=== PATIENT | male | born 1935 | race Caucasian/White ===

== ENCOUNTER 2019-05-03 08:14 | Outpatient (CLI) | payer MEDICARE, SELFPAY ==
[2019-05-03 09:13] LABS: Prostate Specific Antigen 15.24 ng/mL (0-4)
== END 2019-05-03 08:15 | disposition home or self-care (01) ==
PROVIDERS: Family Provider Electrodiagnostic Medicine; PCP Electrodiagnostic Medicine; Visit Provider Urology
DX: R97.20 Elevated prostate specific antigen [PSA] (principal)
CPT/HCPCS: 81001; 84153

== ENCOUNTER 2019-05-23 05:41 | Emergency (ER) | payer MEDICARE, MEDICAID, SELFPAY ==
[2019-05-23] VITALS (11 sets, daily range): BP systolic 136–157; BP diastolic 68–83; PULSE 58–63; RESP 16–20; TEMP 36.4; O2SAT 92–98; BMI 22.7
--- NOTE | 2019-05-23 05:46 | ED_ITS ---
HPI - General Adult General: Chief complaint: Urogenital-Male Stated complaint: urinary pain, hypertension Time Seen by Provider: 05/23/19 05:58 History of Present Illness: HPI narrative: 83-year-old male comes in complaining difficulty urination has had some hematuria self cath once with moderate return he was able to urinate a little bit when he first got here today but is not able to completely empty his bladder. He has been taking ciprofloxacin that is per primary care gave him. This is been an ongoing problem and has been worsening recently. MD complaint: Urinary retention Onset (ago): day(s) (4-5) Severity: moderate Relieving factors: other (Self cath) Associated symptoms: Reports no associated symptoms; Deny chest pain, dyspnea, malaise, nausea, rash or vomiting Review of Systems Const: Denies: fever, chills, body aches, change in appetite, fatigue or malaise ENMT: Denies: throat pain, ear pain, nasal discharge or nasal congestion Card: Denies: chest pain, edema, shortness of breath on exertion or shortness of breath when lying down Resp: Denies: shortness of breath, productive cough or non-productive cough GI: Denies: abdominal pain, nausea, vomiting, vomiting blood, coffee grounds in vomit, diarrhea, constipation, bloating, blood in stool or black tarry stool : Reports: difficulty urinating, urinary frequency, urinary hesitancy, difficulty starting urination and decreased urine ouput; Denies: flank pain, painful urination or urinary urgency Skin/Breast: Denies: rash or itching PFSH ED PFSH: Statuses (acute, chronic, etc) shown below reflect problem list status as previously entered and may not be historically accurate Medical History Abnormal prostate exam (Acute) ASHD (arteriosclerotic heart disease) (Acute) Benign prostatic hyperplasia with lower urinary tract symptoms (Acute) CAD (coronary artery disease) (Acute) CKD (chronic kidney disease) (Acute) Diabetes (Acute) Dyslipidemia (Acute) Elevated prostate specific antigen [PSA] (Acute) Essential hypertension (Acute) Ischemic cardiomyopathy (Acute) Myocardial infarction (Acute) S/P extracorporeal shock wave therapy (Acute) Surgical History History of heart artery stent (Acute) S/P angioplasty with stent (Acute) S/P cystoscopy (Acute) Family History Mother , 57 Cancer LEUKEMIA Father , 90 CAD (coronary artery disease) CHF (congestive heart failure) Brother Myocardial infarction CAD (coronary artery disease) Social History Smoking and tobacco status: never smoked Alcohol intake: never Marital status: Current occupational status: retired Current gender identity: Male Physical Exam Const: COMMON NORMALS: no apparent distress GENERAL APPEARANCE: cooperative and comfortable ORIENTATION/CONSCIOUSNESS: Yes awake, Yes oriented to person, Yes oriented to place and Yes oriented to time HENMT: COMMON NORMALS: normocephalic, head/scalp atraumatic, hearing grossly normal bilaterally, external ears normal, EAC's normal, TM's normal bilaterally, nasal mucous membranes and turbinates normal, moist oral mucous membranes and oropharynx normal HEAD & SCALP: normocephalic and atraumatic NOSE: nasal mucous membranes and turbinates normal EXTERNAL EAR: Yes external ears normal EXTERNAL AUDITORY CANAL: EAC's normal TYMPANIC MEMBRANE: TM's normal bilaterally Eye: COMMON NORMALS: PERRL, EOMs intact bilaterally, conjunctivae normal and no scleral icterus CONJUNCTIVA: Yes conjunctivae normal PUPIL: Yes PERRL Neck/C-Spine: COMMON NORMALS: full ROM, no lymphadenopathy, supple and no JVD Lymph: LYMPHATIC: no lymphadenopathy noted and no lymphedema noted Resp: COMMON NORMALS: normal respiratory effort, no retractions, no use of accessory muscles and clear to auscultation bilaterally AUSCULTATION: clear to auscultation bilaterally Cardio: COMMON NORMALS: no JVD, regular rate, regular rhythm and no murmurs RATE: regular rate RHYTHM: regular rhythm GI: COMMON NORMALS: soft to palpation and no hepatosplenomegaly AUSCULTATION: Yes normoactive bowel sounds PALPATION: Yes soft, No tender, No guarding and Yes no hepatosplenomegaly Extremity: COMMON NORMALS: normal to inspection, normal capillary refill, no clubbing, cyanosis or edema, no calf tenderness and no pedal edema Neuro: SENSORIUM/ORIENTATION: Yes oriented to person, Yes oriented to place and Yes oriented to time Skin: COMMON NORMALS: no rashes or lesions noted GENERAL SKIN EXAM: no rashes or lesions noted Course ED course: 450 out with placement of the cath. We will leave the leg bag and have him increase his tamsulosin and see Dr. Smith in the next 5 to 7 days Discharge Plan Discharge Patient Disposition: Home, Self-Care Clinical Impression: Benign prostatic hyperplasia with urinary retention Condition: Stable Prescriptions: No Action aspirin [Enteric Coated Aspirin] 81 mg tablet,delayed release (DR/EC) 81 mg PO DAILY RF: 0 clopidogrel 75 mg tablet 75 mg PO DAILY RF: 0 metoprolol tartrate 50 mg tablet 50 mg PO BID RF: 0 albuterol sulfate [ProAir HFA] 90 mcg/actuation HFA aerosol inhaler 2 puff INHALATION Q6H PRNRF: 0 lisinopril 40 mg tablet 40 mg PO DAILY RF: 0 simvastatin 40 mg tablet 40 mg PO DAILY RF: 0 sodium chloride [Saline Mist] 0.65 % aerosol,spray 1 spray INTRANASAL .prn RF: 0 tamsulosin 0.4 mg capsule 0.4 mg PO DAILY RF: 0 Discharge Orders: Discharge Order (Routine); Ordered 05/23/19 Ordered By: Cornelius Ledezma Referrals: Jose Smith DO [Primary Care Provider] - Discharge Diet: Usual diet Discharge Activity: Resume usual activity Activity Restrictions/Additional Instructions: Increase tamsulosin 1 to 2 tablets daily until you see your primary care doctor again. See Dr. Smith in approximately 5 to 7 days Coding Level of Care Code ED Varnish Melter Helper for Joan Rose
[2019-05-23 06:18] LABS: Basophils % 0.5 %; Eosinophils # 0.2 10^3/uL (0.0-0.8); Eosinophils % 3.3 %; Hematocrit 40.4 % (42.0-52.0); Lymphocytes # 1.1 10^3/uL (0.8-4.8); Mean Corpuscular HGB Conc 32.2 g/dL (30.0-36.0); Mean Corpuscular Hemoglobin 28.8 pg (28.0-34.0); Mean Corpuscular Volume 89.4 fL (80-94); Mean Platelet Volume 11.9 fL (7.4-10.4); Monocytes # 0.7 10^3/uL (0.2-0.9); Monocytes % 11.8 %; Neutrophils # 3.7 10^3/uL (1.8-7.7); Neutrophils % 65.2 %; Nucleated Red Blood Cells % 0 %; Platelet Count 164 10^3/cmm (130-400); Red Blood Count 4.52 10^6/uL (4.1-5.3); Red Cell Distribution Width 11.9 % (12.1-15.1); White Blood Count 5.7 10^3/uL (4.0-10.0)
[2019-05-23 06:23] LABS: Add Urine Microscopic? YES; Bilirubin Urine Neg (NEGATIVE); Blood Urine 3+ (Negative); Glucose Urine UA Norm (Normal); Ketones Urine Negative (Negative); Leukocyte Esterase Urine Negative (Negative); Nitrate Urine Negative (Negative); Protein Urine Neg (Negative); Specific Gravity, Urine 1.005 (1.005-1.030); Urine Appearance Hazy (CLEAR); Urine Color Yellow (Yellow); Urobilinogen Urine Norm (Negative); pH Urine 6.5 (5-7)
[2019-05-23 06:26] LABS: Add Urine Culture? Yes; Bacteria Urine TRACE; RBC Urine 80-100 /hpf (0-2); Squamous Epithelial Cell Urine 0-4 (0-5)
[2019-05-23 06:28] LABS: Anion Gap 12.8 (5-19); Blood Urea Nitrogen 17 mg/dL (8-23); Calcium 9.4 mg/dL (8.5-10.5); Carbon Dioxide 27 mmol/L (22-29); Chloride 102 mmol/L (98-107); Glucose 102 mg/dL (74-106); Osmolality Calculated 283 mOsm/kg (285-295); Potassium 3.8 mmol/L (3.5-5.1); Sodium 138 mmol/L (136-145)
== END 2019-05-23 07:29 | disposition home or self-care (01) ==
PROVIDERS: Emergency Provider Family Medicine; Family Provider Electrodiagnostic Medicine; PCP Electrodiagnostic Medicine
DX: N40.1 Benign prostatic hyperplasia with lower urinary tract symptoms (principal); R33.8 Other retention of urine; Z79.02 Long term (current) use of antithrombotics/antiplatelets; Z79.82 Long term (current) use of aspirin; I25.10 Atherosclerotic heart disease of native coronary artery without angina pectoris; E11.9 Type 2 diabetes mellitus without complications; E78.5 Hyperlipidemia, unspecified; I10 Essential (primary) hypertension; I25.2 Old myocardial infarction
CPT/HCPCS: 36415; 51702; 80048; 81001; 85025; 87086; 99282; 99283

== ENCOUNTER 2019-06-07 12:08 | Day surgery (SDC) | payer MEDICARE, MEDICAID, SELFPAY ==
[2019-06-06 09:08] VITALS: BMI 21.9
--- NOTE | 2019-06-06 09:43 | ANES.PREANE2 ---
Pre-Anesthetic Assessment Pre-Anesthetic Assessment: Height/Weight: Height 1.68 m Weight 61.689 kg Preop Diagnosis: Multiple bladder stones Proposed Procedure: Operation Date: 06/07/19 14:05 Proposed Procedures p Cystolitholapaxy 00824/63938/ N21.0 N40.1 R33.8(Not Applicable) - Gabo Nielson MD s Poss Transurethral Resection Of Prostate(Not Applicable) - Gabo Nielson MD Exam: Pre-Anes Outpt Exam: alert, oriented x 3, clear to auscultation bilaterally and regular rate & rhythm Airway: Submandibular: WNL Cervical ROM: WNL MP: 1 Dentition: False CV/HEM: CV/HEM: CAD, CHF and VT Comments: VT x 2, , stents without angina/NTG post stents in last visit 1 month no changes/concerns : Comments: BPH with retention, indwelling cather, stones Metabolic: Metabolic: DM Comments: off meds 2 months, rx'd 10y Anesthetic Plan: ASA status: 3 Anesthesia: General PFSH Anesthesia PFSH: Social History Smoking and tobacco status: never smoked Alcohol intake: never Marital status: Current occupational status: retired History of recent travel: No Current gender identity: Male Data Anesthesia Cardiac Studies: No Data to Display
[2019-06-07 12:30] VITALS: BP 167/80; PULSE 63; RESP 16; TEMP 36.8; O2SAT 98
[2019-06-07] MEDS: sodium chloride 0.9% 1,000 ML 30 ML IV (12:42)
--- NOTE | 2019-06-07 12:46 | ECG_ITS ---
Measurements Intervals [place] Rate: 60 P: 53 AR: 134 QRS: 15 QRSD: 125 T: 86 QT: 423 QTc: 425 SINUS RHYTHM MODERATE INTRAVENTRICULAR CONDUCTION DELAY [110+ ms QRS DURATION] NONSPECIFIC T-WAVE ABNORMALITY Compared to ECG 04/11/2016 05:26:52 Intraventricular conduction delay now present Sinus arrhythmia no longer present Possible ischemia no longer present T-wave abnormality still present Electronically Signed On 06-07-2019 20:41:22 LINEMARKER by Ting Arteaga M.D. [email or web address]
--- NOTE | 2019-06-07 12:53 | P.ANESUD_ITS ---
Pre-Anesthetic Update Pre-Anesthetic Assessment: Date of Surgery/Procedure: 06/07/19 Preop Crystal gnosis: Multiple bladder stones Proposed Procedure: Operation Date: 06/07/19 13:45 Proposed Procedures p Cystolitholapaxy 29911/14875/ N21.0 N40.1 R33.8(Not Applicable) - Gabo Nielson MD s Poss Transurethral Resection Of Prostate(Not Applicable) - Gabo Nielson MD Last Intake: Intake Last Liquid Date 06/07/19 Last Liquid Time 07:00 Last Solid Date 06/06/19 Last Solid Time 20:00 Vitals: Temperature 98.2 F 06/07/19 12:30 Temperature Source Temporal Artery S can 06/07/19 12:30 Pulse Rate 63 06/07/19 12:30 Respiratory Rate 16 06/07/19 12:30 Blood Pressure 167/80 06/07/19 12:30 Blood Pressure Marguerite n 109 06/07/19 12:30 Pulse Oximetry 98 06/07/19 12:30 Oxygen Delivery Me thod 06/07/19 12:37 Cardiac Studies: No Data to Display
--- NOTE | 2019-06-07 13:13 | PM.HPUD ---
H&P update H&P Update: DATE OF SURGERY/PROCEDURE: 06/07/19 DATE H&P PERFORMED: 06/01/19 H&P UPDATE INFORMATION: No changes to prior documentation PREOP DIAGNOSIS: Multiple bladder stones PRIMARY INDICATION FOR PROCEDURE: symptomatic bladder stones PLANNED PROCEDURE: Operation Date: 06/07/19 13:45 Proposed Procedures p Cystolitholapaxy 05623/13353/ N21.0 N40.1 R33.8(Not Applicable) - Gabo iNelson MD s Poss Transurethral Resection Of Prostate(Not Applicable) - Gabo Nielson MD Full H&P Medications/Allergies: Current Medications: Current Medications Generic Name Dose Route Start Last Admin Trade Name Freq PRN Reason Stop Dose Admin Sodium Chloride 1,000 mls @ 30 ml s/hr 06/07/19 12:30 06/07/19 12:42 Sodium Chloride 0.9% IV 06/08/19 12:29 30 mls/hr .Q24H ABA Administration Perinent History: Medical/Surgical History: Medical History (Updated 06/01/19 @ 16:05 by Gabo Nielson MD) Abnormal prostate exam ASHD (arteriosclerotic heart disease) Benign prostatic hyperplasia with urinary retention Bladder stone CAD (coronary artery disease) CKD (chronic kidney disease) Diabetes Dyslipidemia Elevated prostate specific antigen [PSA] Essential hypertension Ischemic cardiomyopathy Myocardial infarction S/P extracorporeal shock wave therapy Family History: Family History (Updated 05/17/19 @ 10:28 by Jojo Munoz RN) Mother , 57 Cancer LEUKEMIA Father , 90 CAD (coronary artery disease) CHF (congestive heart failure) Brother Myocardial infarction CAD (coronary artery disease) Social History: Social History Smoking and tobacco status: never smoked Alcohol intake: never Marital status: Current occupational status: retired History of recent travel: No Current gender identity: Male
--- NOTE | 2019-06-07 15:33 | PM.OP ---
Operative Report Date of procedure: June 07, 2019 Pre-op Diagnosis: Multiple bladder stones Post-op diagnosis: same Procedure Done: Cystolitholapaxy >2.5 cm Pathology: Stone fragments Surgeon: Naga Anesthesia: General Estimated blood loss: <25 cc Urine output: Not measured Complications: None Findings: For stones completely fragmented and evacuated from the bladder with an Ellik evacuator Condition: stable Disposition: PACU Brief History: ANGELA is a very pleasant 83-year-old white male with longstanding history of BPH/obstruction recently discovered to have multiple bladder stones. Reviewed TURP and cystolitholapaxy versus cystolitholapaxy along with continued medical therapy. He chose the latter. Admitted now for that procedure. Procedure: After routine preoperative evaluation examination and obtaining of informed consent he was taken to the operating suite on 06/07/2019 where general anesthesia was administered without difficulty after appropriate timeout was performed, SCDs confirmed to be functioning, preoperative antibiotics administered, and beta-thanh protocol confirmed. Prepped and draped in the usual sterile fashion in dorsolithotomy position pain careful attention to avoiding pressure points. 21 [place] cystoscope with 30 degree lens was introduced into the urethral meatus and advanced into the bladder videoscopy. 30 and 70 degree lenses were utilized to identify the stones. And severe trabeculation throughout the bladder. No other gross abnormalities identified beyond the stones and a very enlarged intravesically protruding prostate. A 910 holmium laser fiber was utilized for fragmentation. The stones were individually and sequentially fragmented until the fragments were small enough that could be easily evacuated with any like evacuator. Final inspection with a 30 and 70 degree lens confirmed this. There is no severe bleeding. There was some mild oozing at the bladder neck/prostatic intravesical protrusion portion. Bladder was drained with a 20 [place] silicone catheter and showed clear to light pink efflux. He tolerated the procedure well without complications and was awakened in the operating room and returned to recovery in stable condition. PLANS: 1. Follow-up early next week for voiding trial. 2. Continue holding Plavix and aspirin until then.
[2019-06-07 15:36] VITALS: BP 137/72; PULSE 65; RESP 20; TEMP 36.6; O2SAT 96
[2019-06-07 15:40] VITALS: BP 143/74; PULSE 64; RESP 13; O2SAT 95
[2019-06-07 15:45] VITALS: BP 143/77; PULSE 62; RESP 17; TEMP 36.4; O2SAT 95
[2019-06-07 15:58] VITALS: BP 145/87; PULSE 69; RESP 18; TEMP 36.7; O2SAT 94
[2019-06-07 16:21] VITALS: BP 167/88; PULSE 66; RESP 16; TEMP 36.6; O2SAT 96
--- NOTE | 2019-06-07 16:52 | PC.NURSE ---
1645 flushed catheter with 50 ml of normal saline. flushed easily no clots seen.
== END 2019-06-07 16:54 | disposition home or self-care (01) ==
PROVIDERS: Family Provider Electrodiagnostic Medicine; PCP Electrodiagnostic Medicine; Visit Provider Urology
PROC: 0TCB8ZZ Extirpation of Matter from Bladder, Via Natural or Artificial Opening Endoscopic (ICD-10-PCS; CPT 52318; principal; 2019-06-07 13:45)
PROC: (CPT 52318; 2019-06-07 13:45)
DX: N21.0 Calculus in bladder (principal); N40.1 Benign prostatic hyperplasia with lower urinary tract symptoms; R33.8 Other retention of urine; I25.10 Atherosclerotic heart disease of native coronary artery without angina pectoris; E78.5 Hyperlipidemia, unspecified; E11.22 Type 2 diabetes mellitus with diabetic chronic kidney disease; I13.0 Hypertensive heart and chronic kidney disease with heart failure and stage 1 through stage 4 chronic kidney disease, or unspecified chronic kidney disease; I50.9 Heart failure, unspecified; N18.9 Chronic kidney disease, unspecified; I25.2 Old myocardial infarction; Z82.49 Family history of ischemic heart disease and other diseases of the circulatory system; Z95.5 Presence of coronary angioplasty implant and graft; Z79.82 Long term (current) use of aspirin
CPT/HCPCS: 52318; 12345; 82365; 88300; 93005; J2001; J2704; J3010; J3490; J7030

== ENCOUNTER 2019-06-13 15:53 | Inpatient (IN) | payer MEDICARE, MEDICAID, SELFPAY ==
[2019-06-13 16:10] VITALS: BMI 21.7
[2019-06-13 16:56] VITALS: BP 141/74; PULSE 69; RESP 16; TEMP 37.1; O2SAT 97
--- NOTE | 2019-06-13 16:56 | P.HP_ITS ---
Providers/Chief Complaint Admitting Physician: Gabo Nielson MD Primary Care Provider: Jose Smith DO Chief Complaint: Gross Hematuria with clots History of Present Illness Arianna Sutherland is a 83 year old male well-known to me for history of chronic BPH with obstruction, cystolithiasis, elevated PSA, and abnormal CHRIST who on 06/07/2019 underwent cystolitholapaxy of multiple stones in the bladder. The procedure was uneventful. Because of his large prostate a catheter was left in place and he was discharged from outpatient surgery. While he had some blood in his urine immediately postop it cleared quickly and he presented to clinic today for voiding trial. He chronically takes aspirin and Plavix and these have been held an appropriate amount of time before surgery. He restarted them on 06/11/2019. He successfully passed his voiding trial today. He was trained in [facility] and did very well. About 2 hours later he presented back to the clinic complaining of bloody discharge from his penis, feeling of retention, and increasing discomfort. Bladder scan showed approximately 400 cc in his bladder and cystoscopy was performed showing a large amount of clot in the bladder. Cystoscopy, bladder irrigation of clots was conducted mostly through the cystoscope with some through a large bore catheter. Eventually the clots were cleared and he was started on continuous bladder irrigation in the clinic. The urine cleared significantly but not completely and for that reason he is being admitted for further evaluation and treatment while requiring CBI. I have consulted the hospitalist service for assistance with medical management. His aspirin and Plavix have been stopped. Hopefully the continuous bladder irrigation will be enough to avoid surgical intervention for fulguration. Risks associated with that are significant while still under the impact of aspirin and Plavix. Review of Systems Const: Reports: fatigue; Denies: fever or chills Eyes: Denies: change in vision ENMT: Denies: disequilibrium Card: Denies: chest pain or palpitations Resp: Denies: shortness of breath or productive cough GI: Reports: abdominal pain (Secondary to distended bladder) : Reports: difficulty urinating, painful urination and blood in urine (Gross hematuria with clots) Musc: Denies: extremity pain or extremity swelling Skin/Breast: Denies: rash or redness Neuro: Denies: headache or weakness in extremities Psych: Reports: anxiety; Denies: memory loss Medications/Allergies Allergies Allergy/AdvReac Type Severity Reaction Status Date / Time Latex, Natural Rubber Allergy ALBA-Antwone Verified 06/13/19 08:57 r PFSH Acute PFSH: Medical History (Updated 06/13/19 @ 09:32 by Gabo Nielson MD) Abnormal prostate exam ASHD (arteriosclerotic heart disease) Benign prostatic hyperplasia with urinary retention Bladder stone CAD (coronary artery disease) CKD (chronic kidney disease) Diabetes Dyslipidemia Elevated prostate specific antigen [PSA] Essential hypertension Ischemic cardiomyopathy Myocardial infarction S/P extracorporeal shock wave therapy Surgical History (Updated 06/13/19 @ 17:08 by Gabo Nielson MD) History of bladder stone Cystolitholapaxy May 2019 History of heart artery stent S/P angioplasty with stent S/P cystoscopy Social History Smoking and tobacco status: never smoked Alcohol intake: never Marital status: Current occupational status: retired History of recent travel: No Current gender identity: Male Vitals/I&O/Wt Weight last 48 hrs Weight 134 lb 11.2 oz Physical Exam Const: COMMON NORMALS: no apparent distress, alert and well nourished GENERAL APPEARANCE: well kempt and well developed ORIENTATION/CONSCIOUSNESS: not confused HENMT: COMMON NORMALS: normocephalic and head/scalp atraumatic HEAD & SCALP: normocephalic and atraumatic Eye: COMMON NORMALS: conjunctivae normal and no scleral icterus CONJUNCTIVA: Yes conjunctivae normal Neck/C-Spine: COMMON NORMALS: full ROM GENERAL: Yes normal visual inspection Lymph: LYMPHATIC: no lymphadenopathy noted and no lymphedema noted Resp: COMMON NORMALS: normal respiratory effort EFFORT & INSPECTION: No labored and No actively coughing AUSCULTATION: clear to auscultation bilaterally Cardio: COMMON NORMALS: regular rate and regular rhythm RATE: regular rate RHYTHM: regular rhythm BRUITS: no carotid bruits : BLADDER/KIDNEY EXAM: Yes bladder abnormal to palpation (Tender and distended) PENIS: normal penis MEATUS: meatus normal and blood at meatus SCROTUM: Yes testes descended bilaterally and No tenderness TESTES: No testicular mass Extremity: COMMON NORMALS: no clubbing, cyanosis or edema Neuro: COMMON NORMALS: no focal motor deficits SENSORIUM/ORIENTATION: Yes alert Psych: COMMON NORMALS: mental status grossly normal APPEARANCE: Yes grossly normal and Yes well kempt ATTITUDE: Yes calm and Yes engaged THOUGHT PROCESS: normal thought process Skin: COMMON NORMALS: no rashes or lesions noted and no jaundice GENERAL SKIN EXAM: no rashes or lesions noted Attestations Medical Necessity Statement*: On continuous bladder irrigation for active bleeding Coding Level of Care Code Acute Entry Level Financial Analyst for Joan Rose
--- NOTE | 2019-06-13 17:38 | P.CONIM_ITS ---
Providers/Reason For Consult Consulting Physican/Specialty*: Estee Armstrong/hospital medicine Reason for Consult*: Antiplatelet medications with history of CAD Requesting Physcian: Dr Nielson, urology Attending Physician: Gabo Nielson MD Primary Care Provider: Jose Smith DO History of Present Illness History of Present Illness Arianna Sutherland is a 83 year old male with past medical history of CAD, status post stenting of coronary arteries in 2017, HTN, HLD, BPH, urinary retention, urolithiasis was admitted directly from urology clinic after cystoscopy and irrigation, removal of multiple blood clots due to faraz hematuria and resulting urinary obstruction, and initiation of CBI. He had recently undergone cystolitholapaxy on 06/07/2019, prior to which aspirin Plavix were held. His urinary catheter remained in place. He states he resumed his aspirin Plavix about 3 days ago. Catheter was removed today, and he was trained in self- catheterization. He returned due to bloody discharge and retention. Due to persistent faraz hematuria, he is admitted for CBI and additional management. We are consulted for assistance with management of his antiplatelet agents. He states he is currently doing better. Denies pain, although is having some discomfort in his lower abdomen. His family are accompanying him. He states that he has not had any stents more recent than 2017, and denies any history of CVA. He usually follows with Dr. Boyle in office. Review of Systems Const: Denies: fever, chills, body aches or malaise Eyes: Denies: change in vision or eye redness ENMT: Reports: hoarseness; Denies: throat pain, oral sores/lesions or ear pain Card: Denies: chest pain, edema, pre-syncope or shortness of breath on exerti on Resp: Denies: shortness of breath, productive cough, change in phlegm color or coughing up blood GI: Denies: abdominal pain, nausea, vomiting, diarrhea, constipation, blood in stool or black tarry stool : Reports: difficulty urinating and blood in urine; Denies: flank pain or urinary frequency Musc: Denies: back pain, joint swelling or redness Skin/Breast: Denies: rash, sores or new lesion Neuro: Denies: headache, numbness in extremities, weakness in extremities, dizziness, confusion or seizure-like activity Endo: Denies: excessive urination or excessive thirst Pete/Lymph: Denies: easy bleeding or purpura All/Imm: Denies: hives, throat swelling or tongue swelling Meds/Allergies Home Medications and Allergies Home Medications Medication Instructions Recorded Confirmed Type aspirin 81 mg tablet,delayed 81 mg PO DAILY tab 05/03/19 06/13/19 History release clopidogrel 75 mg tablet 75 mg PO DAILY tab 05/03/19 06/13/19 History lisinopril 40 mg tablet 40 mg PO DAILY tab 05/03/19 06/13/19 History metoprolol tartrate 50 mg tablet 50 mg PO BID 05/03/19 06/13/19 History simvastatin 40 mg tablet 40 mg PO DAILY tab 05/03/19 06/13/19 History sodium chloride 0.65 % nasal spray 1 spray INTRANASAL .prn ml 05/03/19 06/07/19 History aerosol albuterol sulfate 90 mcg/actuation 1 inh INHALATION .prn gm 06/13/19 06/13/19 History aerosol inhaler diphenhydramine HCl 1 % topical % TOPICAL .prn 06/13/19 06/13/19 History cream sodium chloride 0.9 % nasal spray 1 spray INTRANASAL BID PRN 06/13/19 06/13/19 History aerosol Allergies Allergy/AdvReac Type Severity Reaction Status Date / Time Latex, Natural Rubber Allergy Ana Rosa Verified 06/13/19 08:57 r PFSH Acute PFSH: Medical History Abnormal prostate exam ASHD (arteriosclerotic heart disease) Benign prostatic hyperplasia with urinary retention Bladder stone CAD (coronary artery disease) CKD (chronic kidney disease) Diabetes Dyslipidemia Elevated prostate specific antigen [PSA] Essential hypertension Ischemic cardiomyopathy Myocardial infarction S/P extracorporeal shock wave therapy Surgical History History of bladder stone Cystolitholapaxy May 2019 History of heart artery stent S/P angioplasty with stent S/P cystoscopy Family History (Updated 06/13/19 @ 17:49 by Charles Armstrong MD) Mother , 57 Cancer LEUKEMIA Father , 90 CAD (coronary artery disease) CHF (congestive heart failure) Brother Myocardial infarction CAD (coronary artery disease) Leukemia Social History Smoking and tobacco status: never smoked Alcohol intake: never Marital status: Current occupational status: retired History of recent travel: No Current gender identity: Male Vitals/I&O/Wt Last Vital Signs Temp 98.8 F 06/13/19 16:56 Pulse 69 06/13/19 16:56 Resp 16 06/13/19 16:56 BP 141/74 06/13/19 16:56 Pulse Ox 97 06/13/19 16:56 Weight last 48 hrs Weight 61.099 kg Physical Exam Const: COMMON NORMALS: no apparent distress and oriented x3 HENMT: COMMON NORMALS: oropharynx normal Neck/C-Spine: COMMON NORMALS: no JVD Resp: COMMON NORMALS: normal respiratory effort and clear to auscultation bilaterally AUSCULTATION: clear to auscultation bilaterally Cardio: COMMON NORMALS: no JVD, regular rhythm, S1 normal heart sound, S2 normal heart sound and no murmurs RHYTHM: regular rhythm HEART SOUNDS: S1 normal and S2 normal GI: COMMON NORMALS: normal to inspection, nondistended, normoactive bowel sounds, soft to palpation and non-tender PALPATION: Yes soft : OTHER: Gupta in place. Bloody urine in the bag. Extremity: COMMON NORMALS: no joint enlargement and no pedal edema Neuro: COMMON NORMALS: oriented x3 and moves all extremities Skin: COMMON NORMALS: no rashes or lesions noted GENERAL SKIN EXAM: no rashes or lesions noted A&P Assessment and plan (1) Faraz hematuria: Will check Hb level this evening. Will request for 2 units pRBC on hold. Continue CBI. Per discussion with urology due to faraz persistent hematuria at this time hold both aspirin and Plavix. As soon as it is safe would resume aspirin. He is longer than 1 year out from his stent, and so Plavix should be safe to hold at this time. For now would hold off on platelet transfusion unless he is requiring blood or urgent surgical procedure. CLD. At this time blood pressure is 141/74. Heart rate 69. He is doing well and denies any orthostatic symptoms. SCDs for DVT to prophylaxis. Status: Acute Code(s): R31.0 - Gross hematuria Additional A&P Information CAD: Aspirin Plavix has been held due to parenchyma drip. Resume aspirin when possible. Continue statin, beta-thanh. CKD (chronic kidney disease) Dyslipidemia Essential hypertension Ischemic cardiomyopathy Consult Attestations Medical Necessity Statement: Admission of over 2 midnights is going to be needed for assessment of management of faraz hematuria despite outpatient management while on antiplatelet agents. Coding Level of Care Code Acute Ruby On Rails Engineer for [facility] [place] Diagnoses Faraz hematuria R31.0
[2019-06-13 17:40] VITALS: O2SAT 96
[2019-06-13 18:01] LABS: Basophils % 0.3 %; Eosinophils % 0.3 %; Hemoglobin 11.2 g/dL (11.7-16.6); Lymphocytes # 0.7 10^3/uL (0.8-4.8); Lymphocytes % 7.8 %; Mean Corpuscular Hemoglobin 28.4 pg (28.0-34.0); Mean Corpuscular Volume 88.6 fL (80-94); Mean Platelet Volume 11.9 fL (7.4-10.4); Monocytes # 0.6 10^3/uL (0.2-0.9); Monocytes % 6.5 %; Neutrophils # 7.9 10^3/uL (1.8-7.7); Neutrophils % 84.8 %; Nucleated Red Blood Cells % 0 %; Platelet Count 211 10^3/cmm (130-400); Red Blood Count 3.95 10^6/uL (4.1-5.3); Red Cell Distribution Width 11.4 % (12.1-15.1); White Blood Count 9.3 10^3/uL (4.0-10.0)
[2019-06-13 18:03] LABS: Anion Gap 14.9 (5-19); Blood Urea Nitrogen 23 mg/dL (8-23); Calcium 9.3 mg/dL (8.5-10.5); Carbon Dioxide 25 mmol/L (22-29); Chloride 100 mmol/L (98-107); Glucose 136 mg/dL (65-115); Osmolality Calculated 281 mOsm/kg (285-295); Potassium 3.9 mmol/L (3.5-5.1); Sodium 136 mmol/L (136-145)
[2019-06-13] MEDS: tamsulosin 0.4 mg Capsule PO (19:08)
[2019-06-13] MEDS: metoprolol tartrate 50 mg Tablet PO (19:08)
[2019-06-13] MEDS: docusate sodium 100 mg Capsule PO (19:08)
--- NOTE | 2019-06-13 19:35 | PM.MISC ---
Miscellaneous Note Purpose of Documentation: Update Note: After arriving to the floor his catheter became occluded again requiring manual irrigation x2. Clots were retrieved CBI reinitiated and his urine has remained much more clear but still requiring a fairly brisk CBI rate. Appreciate Dr. Armstrong's assistance with medical management and advice regarding management of aspirin and Plavix in this difficult situation. We will add FINASTERIDE 5 mg daily to see if that will help with reducing PROSTATIC source of bleeding. Reviewed and consider the above information for this visit the days' events findings and plans with the patient and family.
--- NOTE | 2019-06-13 19:38 | PC.NURSE ---
CBI CBI fluids running wide open. Output slightly red with occasional dark red streaks. 2400 CBI fluid instilled, 3100 output. Several clots removed via manual irrigation. Pt tolerated manual irrigation well. Report given to JOHN Briscoe.
[2019-06-13 20:00] VITALS: BP 124/64; PULSE 59; RESP 20; TEMP 37; O2SAT 94
[2019-06-13] MEDS: atorvastatin 40 mg Tablet 20 MG PO (20:29)
[2019-06-13] MEDS: finasteride 5 mg Tablet PO (20:30)
[2019-06-13] MEDS: sodium chloride 0.45% 1,000 ML 50 ML IV (22:03)
[2019-06-14] VITALS (9 sets, daily range): BP systolic 107–132; BP diastolic 43–65; PULSE 57–78; RESP 16–20; TEMP 36.7–37.3; O2SAT 94–96
[2019-06-14 00:24] LABS: Hemoglobin 10.1 g/dL (11.7-16.6)
[2019-06-14 04:10] LABS: Basophils % 0.6 %; Eosinophils # 0.2 10^3/uL (0.0-0.8); Eosinophils % 2.4 %; Hematocrit 31.5 % (42.0-52.0); Hemoglobin 10.2 g/dL (11.7-16.6); Lymphocytes # 1.1 10^3/uL (0.8-4.8); Lymphocytes % 15.2 %; Mean Corpuscular HGB Conc 32.4 g/dL (30.0-36.0); Mean Corpuscular Hemoglobin 29.6 pg (28.0-34.0); Mean Corpuscular Volume 91.3 fL (80-94); Mean Platelet Volume 12.3 fL (7.4-10.4); Monocytes # 0.9 10^3/uL (0.2-0.9); Neutrophils # 4.8 10^3/uL (1.8-7.7); Neutrophils % 68.7 %; Nucleated Red Blood Cells % 0 %; Platelet Count 191 10^3/cmm (130-400); Red Blood Count 3.45 10^6/uL (4.1-5.3); Red Cell Distribution Width 11.7 % (12.1-15.1)
[2019-06-14 04:43] LABS: Anion Gap 12.9 (5-19); Blood Urea Nitrogen 14 mg/dL (8-23); Calcium 8.8 mg/dL (8.5-10.5); Carbon Dioxide 27 mmol/L (22-29); Chloride 105 mmol/L (98-107); Glucose 103 mg/dL (65-115); Osmolality Calculated 288 mOsm/kg (285-295); Potassium 3.9 mmol/L (3.5-5.1); Sodium 141 mmol/L (136-145)
--- NOTE | 2019-06-14 05:37 | PC.NURSE ---
SHIFT SUMMARY Pt is here d/t clot retention. CBI is running at a high rate. I was able to slow it a little. Urine in vides bag is pink in color. Pt has denied any pain or discomfort through the night. Daughter stayed overnight with patient. Patient has went through 11 bags and while most likely go through one more before day shift arrives. Output as of now is 3800 of urine.
[2019-06-14] MEDS: docusate sodium 100 mg Capsule PO ×2 (08:20→17:19)
[2019-06-14] MEDS: tamsulosin 0.4 mg Capsule PO ×2 (08:20→17:19)
[2019-06-14] MEDS: metoprolol tartrate 50 mg Tablet PO ×2 (08:21→21:00)
--- NOTE | 2019-06-14 08:30 | PC.NURSE ---
CBI note Patient noted to have peach colored urine, irrigated with 120 ml sterile saline with several clots removed with irrigation. CBI emptied 2000 with 900 ml of saline drained from bag.
--- NOTE | 2019-06-14 12:09 | PC.NURSE ---
CBI note Irrigated vides x 2 with small numerous clots removed. Noted to have light april urine in the tubing and bag at this time.
[2019-06-14] MEDS: oxyCODONE 5 mg IR Tab/Cap PO (14:22)
--- NOTE | 2019-06-14 15:11 | P.PN_ITS ---
Subjective Subjective: Interval history: Hospital day #2. Still requiring significant manual irrigation along with CBI. This afternoon after switching to a 22 [place] three-way catheter his urine looks better than it has since he was hospitalized. Still having some periodic bloody discharge around the catheter that appears to be more consistent with pooling of blood in the prostatic fossa from ongoing prostate oozing but not enough to stain the urine. No other significant complaints. Based on the above information I will advance his diet to a consistent carbohydrate. Appreciate Dr. Armstrong's assistance with medical management. Vitals/I&O/Wt Last Vital Signs Temp 98.5 F 06/14/19 11:44 Pulse 57 L 06/14/19 11:44 Resp 16 06/14/19 14:22 BP 107/59 06/14/19 11:44 Pulse Ox 96 06/14/19 11:44 06/14/19 06/14/19 06/14/19 06:59 14:59 22:59 Intake Total 1450 / 3910 480 / 480 Output Total 4050 / 7150 Balance -2600 / -3240 480 / 480 Weight last 48 hrs Weight 134 lb 11.2 oz Physical Exam Const: COMMON NORMALS: alert GENERAL APPEARANCE: well kempt and well d eveloped ORIENTATION/CONSCIOUSNESS: not confused HENMT: COMMON NORMALS: normocephalic and head/scalp atraumatic HEAD & SCALP: normocephalic and atraumatic Eye: COMMON NORMALS: conjunctivae normal CONJUNCTIVA: Yes conjunctivae normal Neck/C-Spine: GENERAL: Yes normal visual inspection Resp: COMMON NORMALS: normal respiratory effort EFFORT & INSPECTION: No labored and No actively coughing Extremity: COMMON NORMALS: no clubbing, cyanosis or edema Neuro: SENSORIUM/ORIENTATION: Yes alert Psych: COMMON NORMALS: mental status grossly normal APPEARANCE: Yes grossly normal and Yes well kempt ATTITUDE: Yes calm and Yes engaged Skin: COMMON NORMALS: no rashes or lesions noted GENERAL SKIN EXAM: no rashes or lesions noted Urinary Catheter Management^: 3-way Urethral CBI: Cath Placed During This Visit: no Reason for Continuing Indwelling Catheter: Chronic Indwelling Urinary Catheter on Admission Data : 06/14/19 03:40 06/14/19 03:40 A&P Assessment and plan (1) Clot retention of urine: With aggressive irrigation and CBI manipulation of the bladder his prostate bleeding and clot retention has improved substantially over the today. He is still at significant risk for bleeding given his recent doses of Plavix and aspirin. Based on today's appearance of the urine with lower rate of CBI flowing I think that he will not require surgical intervention. It still may take several days be able to wean the CBI off adequately for discharge with catheter in place. Status: Acute Code(s): R33.8 - Other retention of urine (2) Prostatic hemorrhage: Status: Acute Code(s): N42.1 - Congestion and hemorrhage of prostate (3) Elevated prostate specific antigen [PSA]: Status: Acute Code(s): R97.20 - Elevated prostate specific antigen [PSA] Attestations Medical Necessity Statement*: Still requiring continuous bladder irrigation therefore hospitalization. Coding Level of Care Code Acute Us Administrative Law Judge for [facility] Diagnoses Clot retention of urine R33.8 Prostatic hemorrhage N42.1 Elevated prostate specific antigen [PSA] R97.20 ROS Card Denies: chest pain or palpitations Resp Denies: shortness of breath or productive cough GI Reports: abdominal pain (Periodic related to catheter occlusion from clots); Denies: nausea or vomiting Reports: blood in urine and penile discharge Neuro Denies: difficulty walking Psych Denies: anxiety Pete/Lymph Reports: easy bleeding; Denies: tender lymph nodes
[2019-06-14] MEDS: sodium chloride 0.45% 1,000 ML 50 ML IV (17:20)
--- NOTE | 2019-06-14 18:09 | PC.NURSE ---
CBI shift note New 22 kyr[place]z couvelaine tip catheter inserted per physician orders. 5 bags of CBI used this shift. Patient urine noted to be light yellow with no clots or blood noted to tubing or bag. Patient tolerated well and occasionally has bladder spasms. Patient irrigated x 5 this shift with multiple small clots removed. No irrigation needed since new vides insertion.
[2019-06-14] MEDS: morphine 4 mg/mL SDV 1 mL 2 MG IVP (19:08)
--- NOTE | 2019-06-14 19:58 | PM.PN ---
Subjective Subjective: Interval history: Having some blood oozing around the catheter. Vitals/I&O/Wt Last Vital Signs Temp 98.4 F 06/14/19 19:53 Pulse 73 06/14/19 19:53 Resp 18 06/14/19 19:53 BP 122/64 06/14/19 19:53 Pulse Ox 94 06/14/19 19:53 06/14/19 06/14/19 06/14/19 06:59 14:59 22:59 Intake Total 1450 / 3910 480 / 480 1864.167 / 2344.167 Output Total 4050 / 7150 1500 / 1500 Balance -2600 / -3240 480 / 480 364.167 / 844.167 Weight last 48 hrs Weight 61.099 kg Physical Exam Const: COMMON NORMALS: no apparent distress and oriented x3 OTHER: Son at bedside. HENMT: COMMON NORMALS: oropharynx normal Neck/C-Spine: COMMON NORMALS: no JVD Resp: COMMON NORMALS: normal respiratory effort and clear to auscultation bilaterally AUSCULTATION: clear to auscultation bilaterally Cardio: COMMON NORMALS: no JVD, regular rhythm, S1 normal heart sound, S2 normal heart sound and no murmurs RHYTHM: regular rhythm HEART SOUNDS: S1 normal and S2 normal GI: COMMON NORMALS: normal to inspection, nondistended, normoactive bowel sounds, soft to palpation and non-tender PALPATION: Yes soft : OTHER: Gupta in place. Very faint pinkish/peach colored irrigation fluid. Extremity: COMMON NORMALS: no joint enlargement and no pedal edema Neuro: COMMON NORMALS: oriented x3 and moves all extremities Skin: COMMON NORMALS: no rashes or lesions noted GENERAL SKIN EXAM: no rashes or lesions noted Urinary Catheter Management^: 3-way Urethral CBI: Cath Placed During This Visit: no Reason for Continuing Indwelling Catheter: Chronic Indwelling Urinary Catheter on Admission Data : 06/14/19 03:40 06/14/19 03:40 A&P Assessment and plan (1) Faraz hematuria: Hemoglobin stable. With some oozing of blood around the catheter. Possible pulling in prostatic fossa. 2 units pRBC on hold. Continue CBI. Per urology due to faraz persistent hematuria needs to hold both aspirin and Plavix. As soon as it is safe would resume aspirin. He is longer than 1 year out from his stent, and so Plavix should be safe to hold. For now would hold off on platelet transfusion unless he is requiring blood or urgent surgical procedure. SCDs for DVT to prophylaxis. Status: Acute Code(s): R31.0 - Gross hematuria Additional A&P Information CAD: Aspirin Plavix has been held due to parenchyma drip. Resume aspirin when possible. Continue statin, beta-thanh. CKD (chronic kidney disease) Dyslipidemia Essential hypertension Ischemic cardiomyopathy Attestations Medical Necessity Statement*: Continue admission for assessment management of hematuria. Coding Level of Care Code Acute Rn Outpatient Surgery for [facility] [place] Diagnoses Faraz hematuria R31.0
--- NOTE | 2019-06-14 20:03 | PC.NURSE ---
hung to new bags of cbi normal saline emptied vides 450 ml of clear yellow output.
[2019-06-14] MEDS: atorvastatin 40 mg Tablet 20 MG PO (20:59)
[2019-06-14] MEDS: finasteride 5 mg Tablet PO (21:00)
--- NOTE | 2019-06-14 21:03 | PC.NURSE ---
Patient's urine is clear pale yellow at this time. No clots noted. Offered patient pain medication at this time and he stated, No I will call you if I need it. Family at bedside
--- NOTE | 2019-06-14 22:25 | PC.NURSE ---
In the room to check on patient's catheter bag. Patient has the covers pulled back and was messing with his catheter. I asked patient if something was wrong and he states, Yes you will not turn the flushing up higher so it will run faster. Patient is upset because he states that he saw a clot come through his tube and the irrigation of his catheter is running to slow. Emptied the Gupta bag in front of the patient and showed his there were not clots in the container, the Gupta bag or the tube. The patient stated to this nurse, I know what I saw and your not going to call me a liar. I explained to the patient I was not calling him a liar I was just showing him there was no visible clot anywhere. Asked patient to call me next time there is clot so I can see it. Patient daughter at bedside. Patient states that he has pain every 5 to 10 minutes but then it goes away. Asked patient if he would like a something for pain and patient states, No. Will continue to monitor urine output.
--- NOTE | 2019-06-14 23:00 | PC.NURSE ---
Irrigated patient's Gupta catheter at this time using sterile technique. 2-3 small clots removed at this time. No blood noted. Patient states relief after flushing the Gupta.
[2019-06-15] VITALS: BP 130/56; PULSE 66; RESP 17; TEMP 36.7; O2SAT 95
--- NOTE | 2019-06-15 02:36 | PC.NURSE ---
Patient requested to be manually irrigated. Patient states, I just don't think it is draining like it should. It hurts a little. Manually irrigated patient's Gupta at this time using sterile technique. Patient tolerated well. 2-4 small stringy clots removed. Patient verbalized relief. Patient offered pain medication at this time. Patient refused. Daughter remains at bedside.
[2019-06-15 04:00] VITALS: BP 125/60; PULSE 60; RESP 18; TEMP 36.9; O2SAT 94
--- NOTE | 2019-06-15 05:56 | PC.NURSE ---
Gupta catheter emptied at this time. 1000 clear light yellow urine out at this time. no clots or blood noted at this time.
[2019-06-15 06:08] LABS: Hemoglobin 9.7 g/dL (11.7-16.6)
--- NOTE | 2019-06-15 06:36 | PC.NURSE ---
Patient had good urinary output through out the night. Manually irritated patient's Gupta x2 at his request. Small scant clots removed each time. Patient continued to have good clear urinary output even though small clots were removed manually. Patient stated that he was in and out of pain all night but refused any pain medication. Patient's daughter remains at bedside.
[2019-06-15 08:00] VITALS: BP 137/64; PULSE 78; RESP 16; TEMP 36.8; O2SAT 96
[2019-06-15] MEDS: tamsulosin 0.4 mg Capsule PO ×2 (08:48→17:33)
[2019-06-15] MEDS: docusate sodium 100 mg Capsule PO ×2 (08:48→17:33)
[2019-06-15] MEDS: metoprolol tartrate 50 mg Tablet PO ×2 (08:48→17:34)
--- NOTE | 2019-06-15 10:20 | US_ITS ---
WS: [id number] bladder [id number] REASON FOR EXAM: clot retention FINDINGS: The urinary bladder shows a Gupta catheter in position. There appears to be numerous clots in the bladder and the bladder is not grossly distended. / bladder [id number] IMPRESSION: A Gupta catheter is seen in the urinary bladder. There is numerous densities in the bladder consistent with blood clots.
--- NOTE | 2019-06-15 10:32 | PC.NURSE ---
CBI Patient complaining of penis pain, no bladder distention noted, some bloody discharge noted on sheet of bed. Patient bladder scanned with 0ml result. CBI running very slow with no clots noted, CBI irrigated once with no clots noted, Urine is pale yellow. 2500ml of CBI infused with 875 ml of urine output. Patient offered pain medications including tylenol and refused at this time stating I don't want any of that dope . Dr Nielson contacted regarding pain complaints. Orders received for US of bladder for clot retention and to start Pyridium 200mg PO TID.
--- NOTE | 2019-06-15 11:01 | PC.CHAP ---
Pastoral Care Encounter/Spiritual Assessment Type of Contact [] Declined veterinary medicine scientist visit [] Patient/Family/Request visit [] Outpatient visit [] Follow-up visit [] Physician referral [] Code/Alert [x Routine visit [] Staff referral [] Actively dying [] Patient sleeping [] Family support [] [] Out of room [] Palliative care [] [] Receiving care in room [] Pre-surgical visit [] Trauma [] Long length of stay [] ICU visit [] Other: Relational/Emotional Strength [] Patient feels connected with others/family/visitors/staff [] Distress [] Loneliness/isolation [] Abandonment Spirituality of Patient [x] Person of Debbi [x] Attends Latter Day of their Debbi [] Believes in Prayer [] Reads Bible or Restoration materials [] There are Spiritual issues to be addressed Link Trainer Maintenance Man Interventions [x] Prayer [] Active listening [] Non-anxious presence [] Spiritual/emotional support [] Crisis/trauma care [] Spiritual counseling [] Bereavement support [] Provided bereavement packet [] Provided Bible/devotional materials [] Provided toy/stuffed animal, coloring book to patient or family member [] Provided Communion [] Anointing/Morgan [] Salvation [x] Completed spiritual assessment [] Other: Impact on Illness or Injury [] Angry [] Fearful [] Anxious [] Often cries [] Exhaustion [] Unable to work [] Unable to attend methodist [] Unable to walk/stand [] Unable to read [] Unable to drive [] Unable to eat/drink [] Unable to sleep [] Unable to be with family [] Patient intubated [] Other: Summary patient not happy dont understand whats going on Time spent with patient 10 min
[2019-06-15] MEDS: phenazopyridine 100 mg Tablet 200 MG PO ×2 (11:26→17:32)
[2019-06-15] MEDS: sodium chloride 0.45% 1,000 ML 50 ML IV (11:26)
[2019-06-15] MEDS: TRAMadol 50 mg Tablet PO ×3 (11:27→21:50)
[2019-06-15 11:49] VITALS: BP 141/86; PULSE 70; RESP 19; TEMP 36.8; O2SAT 96
--- NOTE | 2019-06-15 14:28 | PM.PN ---
Subjective Subjective: Interval history: Had a rough night with some confusion after morphine. Having intermittent pain and some leakage around the catheter. His urine has remained relatively clear since last night after placement of larger catheter and manual irrigation of clots. Catheter seems to be working well. Vital signs of been stable. No other symptoms of concern at this time. More lucid today Pyridium has helped reduce bladder discomfort. Tolerating tramadol well for pain control. Bladder ultrasound appeared to show clots in the bladder despite the clarity of the urine on low-flow CBI Catheter manually irrigated with no clot return. Plans: 1. Consider bedside flexible cystoscopy tomorrow a.m. 2. Based on US results will plan for cystoscopy and clot evacuation tomorrow AM Vitals/I&O/Wt Last Vital Signs Temp 98.3 F 06/15/19 11:49 Pulse 70 06/15/19 11:49 Resp 19 H 06/15/19 11:49 BP 141/86 06/15/19 11:49 Pulse Ox 96 06/15/19 11:49 06/14/19 06/15/19 06/15/19 22:59 06:59 14:59 Intake Total 7864.167 / 8344.167 1384.167 / 1384.167 Output Total 2450 / 2450 2450 / 4900 875 / 875 Balance 5414.167 / 5894.167 -2450 / 3444.167 509.167 / 509.167 Weight last 48 hrs Weight 134 lb 11.2 oz Physical Exam Const: COMMON NORMALS: no apparent distress and oriented x3 Resp: COMMON NORMALS: normal respiratory effort EFFORT & INSPECTION: No respiratory distress GI: COMMON NORMALS: soft to palpation and non-tender PALPATION: Yes soft : PENIS: normal penis and uncircumcised Neuro: COMMON NORMALS: oriented x3 Urinary Catheter Management^: 3-way Urethral CBI: Cath Placed During This Visit: no Reason for Continuing Indwelling Catheter: Chronic Indwelling Urinary Catheter on Admission Data : 06/15/19 05:38 06/14/19 03:40 Attestations Medical Necessity Statement*: requiring CBI Coding Level of Care Code Acute Medical Certification Specialist for [facility]
--- NOTE | 2019-06-15 14:48 | PM.PN ---
Subjective Subjective: Interval history: This morning he is in discomfort in his urethra. Last night in quite a bit of discomfort in lower abdomen/urethra for which received morphine, although he feels it did not help with the pain in definitely made him anxious and restless. Vitals/I&O/Wt Last Vital Signs Temp 98.3 F 06/15/19 11:49 Pulse 70 06/15/19 11:49 Resp 19 H 06/15/19 11:49 BP 141/86 06/15/19 11:49 Pulse Ox 96 06/15/19 11:49 06/14/19 06/15/19 06/15/19 22:59 06:59 14:59 Intake Total 7864.167 / 8344.167 1384.167 / 1384.167 Output Total 2450 / 2450 2450 / 4900 875 / 875 Balance 5414.167 / 5894.167 -2450 / 3444.167 509.167 / 509.167 Weight last 48 hrs Weight 61.099 kg Physical Exam Const: COMMON NORMALS: oriented x3 OTHER: Family at bedside He is anxious In discomfort in his urethra, holding onto the catheter HENMT: COMMON NORMALS: oropharynx normal Neck/C-Spine: COMMON NORMALS: no JVD Resp: COMMON NORMALS: normal respiratory effort and clear to auscultation bilaterally AUSCULTATION: clear to auscultation bilaterally Cardio: COMMON NORMALS: no JVD, regular rhythm, S1 normal heart sound, S2 normal heart sound and no murmurs RHYTHM: regular rhythm HEART SOUNDS: S1 normal and S2 normal GI: COMMON NORMALS: normal to inspection, nondistended, normoactive bowel sounds, soft to palpation and non-tender PALPATION: Yes soft : OTHER: Catheter in place with low rate CBI. Clear urine. Extremity: COMMON NORMALS: no joint enlargement and no pedal edema Neuro: COMMON NORMALS: oriented x3 and moves all extremities Skin: COMMON NORMALS: no rashes or lesions noted GENERAL SKIN EXAM: no rashes or lesions noted Urinary Catheter Management^: 3-way Urethral CBI: Cath Placed During This Visit: no Reason for Continuing Indwelling Catheter: Chronic Indwelling Urinary Catheter on Admission Data : 06/15/19 05:38 06/14/19 03:40 A&P Assessment and plan (1) Gonzalo hematuria: Urine clear in collection bag, but with concern for clots on ultrasound with plan for bedside cystoscopy tomorrow. Morphine discontinued as it made him very restless last night. He is trying tramadol for pain instead. Hemoglobin with mild downtrend. So far not requiring transfusion. Monitor. 2 units pRBC on hold. Continue CBI. Aspirin is held. As soon as it is safe would resume aspirin. He is longer than 1 year out from his stent, and so Plavix should be safe to stop. SCDs for DVT to prophylaxis. Status: Acute Code(s): R31.0 - Gross hematuria Additional A&P Information CAD: Aspirin Plavix held. Resume aspirin when possible. Continue statin, beta-thanh. CKD (chronic kidney disease) Dyslipidemia Essential hypertension Ischemic cardiomyopathy Attestations Medical Necessity Statement*: Continue admission for assessment of management of hematuria. Coding Level of Care Code Acute Athletic Training Internship for Joan Rose Diagnoses Gonzalo hematuria R31.0
[2019-06-15] MEDS: neomycin-poly-bacitracin oint 0.9 gm Pkt 2 APPLIC TOPICAL (15:05)
[2019-06-15 15:52] VITALS: BP 120/52; PULSE 66; RESP 18; TEMP 37.2; O2SAT 94
--- NOTE | 2019-06-15 18:02 | PC.NURSE ---
CBI running very slow with no clots noted, Urine is bright orangeish- yellow. 1500ml of CBI infused with 1250 ml of urine output.
[2019-06-15 20:00] VITALS: BP 113/54; PULSE 67; RESP 18; TEMP 36.8; O2SAT 96
[2019-06-15] MEDS: finasteride 5 mg Tablet PO (21:50)
[2019-06-15] MEDS: atorvastatin 40 mg Tablet 20 MG PO (21:51)
--- NOTE | 2019-06-15 21:56 | PC.NURSE ---
Patient had clear urine output at this time. No clots noted. Patient states he is feeling much better today.
--- NOTE | 2019-06-15 23:43 | PC.NURSE ---
Patient urine is draining well and is free from clots. Patient is resting well in bed at this time. Family at bedside.
[2019-06-16] VITALS: BP 125/63; PULSE 72; RESP 18; TEMP 36.9; O2SAT 96
--- NOTE | 2019-06-16 01:33 | PC.NURSE ---
Patient continues to have good clear urinary output. No clots noted. Patient denies any pain. Family at bedside.
[2019-06-16 04:00] VITALS: BP 116/60; PULSE 70; RESP 18; TEMP 36.7; O2SAT 95
[2019-06-16] MEDS: TRAMadol 50 mg Tablet PO ×5 (04:31→20:14)
[2019-06-16] MEDS: sodium chloride 0.45% 1,000 ML 50 ML IV (04:37)
[2019-06-16 05:54] LABS: Hemoglobin 9.8 g/dL (11.7-16.6)
--- NOTE | 2019-06-16 06:11 | PC.NURSE ---
Patient's urine continues to remain free and clear of clots. Patient's is draining appropriately. Patient denies any pain. No manual irrigation need during my shift.
--- NOTE | 2019-06-16 06:14 | PC.NURSE ---
Patient has been free of clots all night without any manual irrigation needed. Urine has been clear and orange tinged. Patient has been draining adequately without any pain. Patient has been able to rest most of the night. Patient is A&Ox3. Family at bedside.
[2019-06-16 08:00] VITALS: BP 107/61; PULSE 85; RESP 18; TEMP 37.1; O2SAT 95
[2019-06-16] MEDS: phenazopyridine 100 mg Tablet 200 MG PO ×3 (08:53→17:22)
[2019-06-16] MEDS: metoprolol tartrate 50 mg Tablet PO ×2 (08:54→17:23)
[2019-06-16] MEDS: docusate sodium 100 mg Capsule PO ×2 (08:54→17:22)
[2019-06-16] MEDS: tamsulosin 0.4 mg Capsule PO ×2 (08:54→17:22)
[2019-06-16 12:00] VITALS: BP 109/51; PULSE 73; RESP 17; TEMP 37.4; O2SAT 94
--- NOTE | 2019-06-16 13:42 | P.PN_ITS ---
Subjective Subjective: Interval history: Urine clear overnight. Less pain. Denies fever, chills, SOB, CP, rash or lesions. Recommended flex cysto to assess for clots and if present go to OR. FLEX CYSTO: 2% Lidocaine anesthesia Friable prostate. Severely inflammed mucosa but no significant clots in bladder. Plan: Cancel surgery Leave vides out and do 6 bottle void with in and out cath prn. Scan PVRs. If does well try for d/c tomorrow. Cover with antibiotics for UTI given his recent retention, multiple instrumentations, and hematuria. Vitals/I&O/Wt Last Vital Signs Temp 98.7 F 06/16/19 08:00 Pulse 85 06/16/19 08:00 Resp 18 06/16/19 08:00 BP 107/61 06/16/19 08:00 Pulse Ox 95 06/16/19 08:00 06/15/19 06/16/19 06/16/19 22:59 06:59 14:59 Intake Total 3120 / 4504.167 859.167 / 5363.334 857.5 / 857.5 Output Total 3350 / 5875 3550 / 9425 670 / 670 Balance -230 / -1370.833 -2690.833 / -4061.666 187.5 / 187.5 Physical Exam Const: COMMON NORMALS: no apparent distress, alert and well nourished ORIENTATION/CONSCIOUSNESS: not confused Eye: COMMON NORMALS: conjunctivae normal CONJUNCTIVA: Yes conjunctivae normal Neck/C-Spine: COMMON NORMALS: full ROM Resp: COMMON NORMALS: normal respiratory effort EFFORT & INSPECTION: No labored and No actively coughing GI: COMMON NORMALS: normal to inspection, nondistended, normoactive bowel sounds, soft to palpation and non-tender PALPATION: Yes soft : BLADDER/KIDNEY EXAM: Yes bladder normal to palpation PENIS: normal penis MEATUS: meatus normal SCROTUM: Yes testes descended bilaterally and No tenderness TESTES: No testicular mass Extremity: COMMON NORMALS: no clubbing, cyanosis or edema Neuro: COMMON NORMALS: no focal motor deficits SENSORIUM/ORIENTATION: Yes alert Psych: COMMON NORMALS: mental status grossly normal and thought process normal ATTITUDE: Yes calm and Yes engaged THOUGHT PROCESS: normal thought process Skin: COMMON NORMALS: no rashes or lesions noted and no jaundice GENERAL SKIN EXAM: no rashes or lesions noted Urinary Catheter Management^: 3-way Urethral CBI: Cath Placed During This Visit: yes, but has since been removed by the nurse Reason for Continuing Indwelling Catheter: Decision to DC Catheter Date Urinary Catheter Removed: 06/16/19 Time Urinary Catheter Discontinued: 06:00 Data : 06/16/19 05:39 06/14/19 03:40 Attestations Medical Necessity Statement*: High risk for bleeding with failed conservative trial previously. Still with higher risk due to recent Plavix and ASA. Coding Level of Care Code Acute Global Regulatory Affairs Manager for Joan Rose
--- NOTE | 2019-06-16 15:46 | PC.SOCIAL ---
IMM Update Pg2 of IMM given and explained to patient who verbalized understanding. Signed, dated, and timed and placed in chart. Copy provided to patient.
[2019-06-16 16:00] VITALS: BP 109/51; PULSE 73; RESP 17; TEMP 37.6; O2SAT 94
[2019-06-16] MEDS: levoFLOXacin 500 mg Tablet PO (16:15)
--- NOTE | 2019-06-16 18:56 | PM.PN ---
Subjective Subjective: Interval history: Currently no abdominal pain. No blood in urine. Vitals/I&O/Wt Last Vital Signs Temp 99.6 F 06/16/19 16:00 Pulse 73 06/16/19 16:00 Resp 17 06/16/19 16:00 BP 109/51 06/16/19 16:00 Pulse Ox 94 06/16/19 16:00 06/16/19 06/16/19 06/16/19 06:59 14:59 22:59 Intake Total 859.167 / 5363.334 857.5 / 857.5 619.167 / 1476.667 Output Total 3550 / 9425 670 / 670 150 / 820 Balance -2690.833 / -4061.666 187.5 / 187.5 469.167 / 656.667 Physical Exam Const: COMMON NORMALS: oriented x3 OTHER: Awake and alert. Sitting up in bed. HENMT: COMMON NORMALS: oropharynx normal Neck/C-Spine: COMMON NORMALS: no JVD Resp: COMMON NORMALS: normal respiratory effort and clear to auscultation bilaterally AUSCULTATION: clear to auscultation bilaterally Cardio: COMMON NORMALS: no JVD, regular rhythm, S1 normal heart sound, S2 normal heart sound and no murmurs RHYTHM: regular rhythm HEART SOUNDS: S1 normal and S2 normal GI: COMMON NORMALS: normal to inspection, nondistended, normoactive bowel sounds, soft to palpation and non-tender PALPATION: Yes soft : OTHER: Three-way catheter taken out. Extremity: COMMON NORMALS: no joint enlargement and no pedal edema Neuro: COMMON NORMALS: oriented x3 and moves all extremities Skin: COMMON NORMALS: no rashes or lesions noted GENERAL SKIN EXAM: no rashes or lesions noted Urinary Catheter Management^: 3-way Urethral CBI: Cath Placed During This Visit: yes, but has since been removed by the nurse Reason for Continuing Indwelling Catheter: Decision to DC Catheter Date Urinary Catheter Removed: 06/16/19 Time Urinary Catheter Discontinued: 06:00 2-way Urethral: Cath Placed During This Visit: yes Urethral Indwelling: Yes Reason for Continuing Indwelling Catheter: Assist healing open wound Urinary Catheter Date of Insertion: 06/16/19 Urinary Catheter Time of Insertion: 16:33 Data : 06/16/19 05:39 06/14/19 03:40 A&P Assessment and plan (1) Gonzalo hematuria: Cystoscopy was canceled this morning. Voiding trial, but see that catheter had to be replaced. Aspirin is held. As soon as it is safe would resume aspirin. Should be safe to discontinue Plavix. SCDs for DVT to prophylaxis. Status: Acute Code(s): R31.0 - Gross hematuria Additional A&P Information CAD: Aspirin Plavix held. Resume aspirin when possible. Continue statin, beta-thanh. CKD (chronic kidney disease) Dyslipidemia Essential hypertension Ischemic cardiomyopathy Attestations Medical Necessity Statement*: Continue assessment and management of hematuria. Coding Level of Care Code Acute Grounding Engineer for Joan Rose Diagnoses Gonzalo hematuria R31.0
[2019-06-16 19:42] VITALS: BP 100/53; PULSE 73; RESP 18; TEMP 37.2; O2SAT 92
[2019-06-16] MEDS: finasteride 5 mg Tablet PO (20:14)
[2019-06-16] MEDS: atorvastatin 40 mg Tablet 20 MG PO (20:15)
--- NOTE | 2019-06-16 23:53 | PC.RESP ---
Bladder scanned patient to know how much urine was in his bladder. 46 mls noted to be in bladder. Encouraged patient to drink and to call if he develops any cramping or severe pain or notices any clots. Patient and family verbalized understanding.
[2019-06-17] VITALS: BP 104/48; PULSE 73; RESP 17; TEMP 36.7; O2SAT 95
[2019-06-17] MEDS: TRAMadol 50 mg Tablet PO ×2 (00:30→05:58)
[2019-06-17] MEDS: sodium chloride 0.45% 1,000 ML 50 ML IV (00:32)
[2019-06-17 04:00] VITALS: BP 117/60; PULSE 74; RESP 17; TEMP 36.8; O2SAT 92
[2019-06-17 05:50] LABS: Hemoglobin 10.4 g/dL (11.7-16.6)
[2019-06-17] MEDS: levoFLOXacin 500 mg Tablet PO (05:58)
--- NOTE | 2019-06-17 07:49 | P.DS_ITS ---
Discharge Providers Date of Admission: 06/13/19 15:53 Date of Discharge: June 17, 2019 Attending Provider at Admission: Gabo Nielson MD Attending Provider at Discharge: Gabo Nielson MD Primary Care Provider: Jose Smith DO Diagnoses at Discharge Discharge Diagnosis (1) Prostatic hemorrhage: Status: Acute (2) Benign prostatic hyperplasia with urinary retention: Status: Acute Reason for Visit Reason for Visit: Reason For Visit: Gross Hematuria with clots Hospital Course Hospital Course: Patient was admitted through the clinic for clot retention related to acute bleeding after catheter removed following cystolitholapaxy week before. He had restarted his Plavix and aspirin. He required hospitalization for an extended course due to ongoing bleeding felt to be exacerbated by his platelet dysfunction from his medication. He required continuous bladder irrigation for an extended period along with manual irrigation frequently. Ultimately this was stopped. There was an ultrasound that showed possibility of clots in the bladder but this was ruled out with flexible bedside cystoscopy on 06/16/2019. He did fail a voiding trial on the same day and for that reason a catheter was replaced with no need for continuous bladder irrigation. He did develop increasing urgency frequency and bladder spasms not related to clots and due to the significant amount of recurrent retention and instrumentation he was covered with LEVAQUIN 500 mg daily. On 06/17/2019 he was deemed a good candidate for further convalescence at home and was discharged with a Gupta catheter in place. We discussed options of voiding trial again after a couple weeks of healing versus moving toward TURP which we had discussed before cystolitholapaxy as a possible combined procedure addressing both the stones as well as the underlying cause of the stones. At that time he was hoping to avoid TURP. The alternative to repeat voiding trial in a couple weeks would be to go ahead and perform TURP. Ultimately after detailed discussion they were leaning more toward TURP later this week. Family will discuss it with the patient and confirm that general leaning at this time. I would like him to be infection free at that point, safe from a anemia recovery before surgery and for that reason would like to see him on 06/21/2019 for CBC and reevaluation preoperatively for anticipated TURP on 06/22/2019. We will send him home on iron Physical Exam Const: COMMON NORMALS: no apparent distress and oriented x3 EXAM LIMITATIONS: no altered mental status Resp: COMMON NORMALS: normal respiratory effort EFFORT & INSPECTION: No tachypneic and No respiratory distress GI: COMMON NORMALS: soft to palpation and non-tender PALPATION: Yes soft Neuro: COMMON NORMALS: oriented x3 Psych: COMMON NORMALS: mental status grossly normal and thought process normal ATTITUDE: Yes calm and Yes engaged THOUGHT PROCESS: normal thought process Urinary Catheter Management^: 3-way Urethral CBI: Cath Placed During This Visit: yes, but has since been removed by the nurse Reason for Continuing Indwelling Catheter: Decision to DC Catheter Date Urinary Catheter Removed: 06/16/19 Time Urinary Catheter Discontinued: 06:00 2-way Urethral: Cath Placed During This Visit: yes Urethral Indwelling: Yes Reason for Continuing Indwelling Catheter: Acute Urinary Retention or Obstruction Urinary Catheter Date of Insertion: 06/16/19 Urinary Catheter Time of Insertion: 16:33 Discharge Data Data Completed and Pending: Completed Studies During Hospitalization Category Date Time Status bladder 53291 Routine Ultrasound 06/15/19 10:20 Completed Labs from last 24 hours 06/17/19 06/13/19 05:25 17:35 Hgb 10.4 L Crossmatch See Detail Vitals: Last Vital Signs Temp 98.2 F 06/17/19 04:00 Pulse 74 06/17/19 04:00 Resp 17 06/17/19 04:00 BP 117/60 06/17/19 04:00 Pulse Ox 92 06/17/19 04:00 Discharge Plan Discharge Condition: Stable Prescriptions: New tramadol 50 mg Tablet 50 mg PO Q6H PRN (Reason: Moderate Pain) Qty: 15 RF: 0 levofloxacin 500 mg Tablet 500 mg PO DAILY@0600 Qty: 7 RF: 0 finasteride 5 mg Tablet 5 mg PO BEDTIME Qty: 60 RF: 0 ferrous sulfate 324 mg (65 mg iron) tablet,delayed release (DR/EC) 324 mg PO BID Qty: 60 RF: 0 Continued metoprolol tartrate 50 mg tablet 50 mg PO BID RF: 0 lisinopril 40 mg tablet 40 mg PO DAILY RF: 0 simvastatin 40 mg tablet 40 mg PO DAILY RF: 0 sodium chloride [Saline Mist] 0.65 % aerosol,spray 1 spray INTRANASAL .prn RF: 0 diphenhydramine HCl 1 % cream TOPICAL .prn RF: 0 Sterile Saline 0.9 % aerosol,spray 1 spray INTRANASAL BID PRNRF: 0 albuterol sulfate [ProAir HFA] 90 mcg/actuation HFA aerosol inhaler 1 inh INHALATION .prn RF: 0 tamsulosin 0.4 mg capsule 0.4 mg PO BID Qty: 180 RF: 3 Pyridium 200 mg tablet 200 mg PO Q8H PRN (Reason: pain) Qty: 21 RF: 0 Held aspirin [Enteric Coated Aspirin] 81 mg tablet,delayed release (DR/EC) 81 mg PO DAILY RF: 0 Hold Instructions: Resume on 06/29/19. clopidogrel 75 mg tablet 75 mg PO DAILY RF: 0 Hold Instructions: Resume on 06/29/19. Discontinued lidocaine HCl 2 % jelly 15 ml INTRA-URET ONCE Qty: 1 RF: 0 cephalexin 250 mg capsule 250 mg PO TID Qty: 14 RF: 0 Hold Instructions: Order Change Discharge Orders: Discharge Order (Routine); Ordered 06/17/19 Ordered By: Gabo Nielson Referrals: Gabo Nielson MD [Physician] - 06/21/19 (CBC at [facility] first) Discharge Diet: Usual diet Discharge Activity: Limit activity as instructed Activity Restrictions/Additional Instructions: Can use in leg bag or night bag pending your preference. Return to clinic on the for CBC (blood test) at [facility] first. Tentative plan for TURP (prostate surgery) on 06/22/2019. May postpone if blood count has not normalized Continue to hold Plavix and aspirin preoperatively. Please call for any concerns or questions. Discharge Attestations Time Spent in Discharge Care*: greater than 30 min Quality Metrics Clinical Quality Measures During this hospital stay, did patient experience: None Coding Level of Care Code Acute Veneer Gluer for Yanag Fwd Exam Expanded Problem Focused Diagnoses Prostatic hemorrhage N42.1 Benign prostatic hyperplasia with urinary retention N40.1; R33.8
[2019-06-17 08:00] VITALS: BP 123/60; PULSE 70; RESP 16; TEMP 36.5; O2SAT 94
[2019-06-17] MEDS: phenazopyridine 100 mg Tablet 200 MG PO ×2 (08:44→11:15)
[2019-06-17] MEDS: tamsulosin 0.4 mg Capsule PO (08:45)
[2019-06-17] MEDS: docusate sodium 100 mg Capsule PO (08:45)
[2019-06-17] MEDS: metoprolol tartrate 50 mg Tablet PO (08:45)
--- NOTE | 2019-06-17 10:11 | PC.NURSE ---
Pt resting in bed with eyes closed. 0 s/s of distress noted
--- NOTE | 2019-06-17 10:31 | PC.NURSE ---
Manual irrigation done on 3 way vides at this time per dr orders 120 ml instilled. 0 clots removed, urine yellow and clear in color in cath tubing. Pt tolerated procedure well.
[2019-06-17 11:46] VITALS: BP 117/68; PULSE 64; RESP 18; TEMP 37; O2SAT 91
[2019-06-17 14:33] VITALS: BP 117/68; PULSE 64; RESP 18; TEMP 37; O2SAT 91
[2019-06-17 14:57] VITALS: BP 117/68; PULSE 64; RESP 18; TEMP 37; O2SAT 91
--- NOTE | 2019-06-17 19:47 | PM.PN ---
Subjective Subjective: Interval history: Today he is feeling much better. Urine with orangey reddish discoloration due to Pyridium. No clots visible. He is not bothered by pain. Vitals/I&O/Wt Last Vital Signs Temp 98.6 F 06/17/19 14:57 Pulse 64 06/17/19 14:57 Resp 18 06/17/19 14:57 BP 117/68 06/17/19 14:57 Pulse Ox 91 06/17/19 14:57 06/17/19 06/17/19 06/17/19 06:59 14:59 22:59 Intake Total 499.167 / 1975.834 520 / 520 Output Total 750 / 1870 350 / 350 Balance -250.833 / 105.834 170 / 170 Physical Exam Const: COMMON NORMALS: oriented x3 OTHER: Awake and alert. Sitting up in bed. HENMT: COMMON NORMALS: oropharynx normal Neck/C-Spine: COMMON NORMALS: no JVD Resp: COMMON NORMALS: normal respiratory effort and clear to auscultation bilaterally AUSCULTATION: clear to auscultation bilaterally Cardio: COMMON NORMALS: no JVD, regular rhythm, S1 normal heart sound, S2 normal heart sound and no murmurs RHYTHM: regular rhythm HEART SOUNDS: S1 normal and S2 normal GI: COMMON NORMALS: normal to inspection, nondistended, normoactive bowel sounds, soft to palpation and non-tender PALPATION: Yes soft : OTHER: Gupta Extremity: COMMON NORMALS: no joint enlargement and no pedal edema Neuro: COMMON NORMALS: oriented x3 and moves all extremities Skin: COMMON NORMALS: no rashes or lesions noted GENERAL SKIN EXAM: no rashes or lesions noted Urinary Catheter Management^: 3-way Urethral CBI: Cath Placed During This Visit: yes, but has since been removed by the nurse Reason for Continuing Indwelling Catheter: Decision to DC Catheter Date Urinary Catheter Removed: 06/16/19 Time Urinary Catheter Discontinued: 06:00 2-way Urethral: Cath Placed During This Visit: yes Urethral Indwelling: Yes Reason for Continuing Indwelling Catheter: Acute Urinary Retention or Obstruction Urinary Catheter Date of Insertion: 06/16/19 Urinary Catheter Time of Insertion: 16:33 Data : 06/17/19 05:25 06/14/19 03:40 A&P Assessment and plan (1) Gonzalo hematuria: Gupta in place. Aspirin is held. As soon as it is safe would resume aspirin. Should be safe to discontinue Plavix. Continue follow up with cardiology. SCDs for DVT to prophylaxis. Due to concern for UTI started on antibiotic empirically by urology. Home with planned follow up with urology once there is no question of infection, with TURP versus voiding trial in several weeks. Status: Acute Code(s): R31.0 - Gross hematuria Additional A&P Information CAD: Aspirin Plavix held. Resume aspirin when possible. Continue statin, beta-thanh. CKD (chronic kidney disease) Dyslipidemia Essential hypertension Ischemic cardiomyopathy Attestations Medical Necessity Statement*: Returning home today. Coding Level of Care Code Acute Geographic Information Systems Analyst for Joan Rose Diagnoses Gonzalo hematuria R31.0
== END 2019-06-17 14:57 | disposition home or self-care (01) | DRG 696 ==
PROVIDERS: Internal Medicine; Admitting Provider Urology; Family Provider Electrodiagnostic Medicine; PCP Electrodiagnostic Medicine; Visit Provider Urology
DX: R31.0 Gross hematuria (principal); I42.9 Cardiomyopathy, unspecified; N40.1 Benign prostatic hyperplasia with lower urinary tract symptoms; R33.8 Other retention of urine; Z79.82 Long term (current) use of aspirin; Z79.02 Long term (current) use of antithrombotics/antiplatelets; I25.10 Atherosclerotic heart disease of native coronary artery without angina pectoris; Z95.5 Presence of coronary angioplasty implant and graft; E11.22 Type 2 diabetes mellitus with diabetic chronic kidney disease; I12.9 Hypertensive chronic kidney disease with stage 1 through stage 4 chronic kidney disease, or unspecified chronic kidney disease; N18.9 Chronic kidney disease, unspecified; E78.5 Hyperlipidemia, unspecified; I25.2 Old myocardial infarction; N39.0 Urinary tract infection, site not specified
CPT/HCPCS: 12345; 36415; 51702; 51798; 76857; 80048; 85018; 85025; 86850; 86900; 94664; J2270

== ENCOUNTER 2019-06-21 08:13 | Outpatient (CLI) | payer MEDICARE, MEDICAID, SELFPAY ==
[2019-06-21 09:43] LABS: Prostate Specific Antigen 99.32 ng/mL (0-4)
== END 2019-06-21 08:14 | disposition home or self-care (01) ==
PROVIDERS: Family Provider Electrodiagnostic Medicine; PCP Electrodiagnostic Medicine; Visit Provider Urology
DX: R97.20 Elevated prostate specific antigen [PSA] (principal)
CPT/HCPCS: 36415; 84153; 85025

== ENCOUNTER → 2019-07-16 08:38 | Outpatient (BNVA) | payer MEDICARE, MEDICAID, SELFPAY | PROVIDERS: Family Provider Electrodiagnostic Medicine; PCP Electrodiagnostic Medicine; Visit Provider Urology | DX: R33.8 Other retention of urine (principal); N40.1 Benign prostatic hyperplasia with lower urinary tract symptoms | CPT/HCPCS: 81001 ==

== ENCOUNTER → 2019-10-17 08:26 | Outpatient (BNVA) | payer MEDICARE, MEDICAID, SELFPAY | PROVIDERS: Family Provider Electrodiagnostic Medicine; PCP Electrodiagnostic Medicine; Visit Provider Urology | DX: N42.1 Congestion and hemorrhage of prostate (principal); N20.9 Urinary calculus, unspecified; N40.1 Benign prostatic hyperplasia with lower urinary tract symptoms | CPT/HCPCS: 81001 ==

== ENCOUNTER → 2020-02-08 09:58 | Outpatient (BNVA) | payer MEDICARE, MEDICAID, SELFPAY | PROVIDERS: Family Provider Electrodiagnostic Medicine; PCP Electrodiagnostic Medicine; Visit Provider Urology | DX: N40.1 Benign prostatic hyperplasia with lower urinary tract symptoms (principal); R33.8 Other retention of urine; N20.9 Urinary calculus, unspecified; N64.4 Mastodynia; R31.9 Hematuria, unspecified | CPT/HCPCS: 80053; 81001 ==

== ENCOUNTER 2020-11-17 06:00 | Outpatient (CLI) | payer MEDICARE, MEDICAID, SELFPAY | END 2020-11-17 06:01 | disposition home or self-care (01) | LOC: RAD 09-03 14:47 | PROVIDERS: PCP Electrodiagnostic Medicine; Visit Provider Urology | DX: N20.1 Calculus of ureter (principal) | CPT/HCPCS: 81003; 87086 ==

== ENCOUNTER 2020-11-17 09:07 | Outpatient (CLI) | payer MEDICARE, MEDICAID, SELFPAY ==
--- NOTE | 2020-11-17 09:36 | XR_ITS ---
WS: [id number] XR KUB [id number] REASON FOR EXAM: URINARY CALCULUS FINDINGS: No retroperitoneal air or free air. Large amount of stool within the colon. The bowel gas pattern is otherwise unremarkable. Moderately severe degenerative spondylosis in the lower thoracic spine. Moderately severe degenerativ e arthropathy in the right hip. No urinary tract calculus is identified. However the exam is somewhat insensitive due to the large am ount of bowel and stool overlying the genitourinary tract. XR/XR KUB [id number] IMPRESSION: No urinary tract calculi identified.
== END 2020-11-17 09:08 | disposition home or self-care (01) ==
LOC: RAD 09:23
PROVIDERS: PCP Electrodiagnostic Medicine; Visit Provider Urology
DX: N20.9 Urinary calculus, unspecified (principal)
CPT/HCPCS: 74018

== ENCOUNTER 2020-12-16 09:00 | Outpatient (CLI) | payer MEDICARE, MEDICAID, SELFPAY ==
--- NOTE | 2020-12-16 09:00 | XR_ITS ---
WS: [id number] Exam: XR KUB [id number] Date/Time of Exam: 12/16/2020 9:00 AM Reason For Exam: UROLITHIASIS Comparison 11/17/2020. There is a 4 mm right abdominal calcification that could represent a gallstone or renal stone. No bow el obstruction or free air. Organ margins are obscured. There is atherosclerotic plaquing of the abdo reyes aorta and splenic artery. Degenerative change and levoscoliosis of the lumbar spine. Nonspecifi c pelvic calcifications noted. XR/XR KUB [id number] IMPRESSION: 1. 4 mm right abdominal calcification that could represent a gallstone or renal stone. 2. No acute abdominal finding.
== END 2020-12-16 09:01 | disposition home or self-care (01) ==
LOC: RAD 09:15
PROVIDERS: PCP Electrodiagnostic Medicine; Visit Provider Urology
DX: N20.9 Urinary calculus, unspecified (principal)
CPT/HCPCS: 74018

== ENCOUNTER 2020-12-30 08:50 | Outpatient (CLI) | payer MEDICARE, MEDICAID, SELFPAY ==
--- NOTE | 2020-12-30 09:00 | CT_ITS ---
WS: [id number] CT ABDOMEN PELVIS TECHNIQUE: Noncontrast CT of the abdomen and pelvis with coronal and sagittal reformatted images. CLINICAL INFORMATION: urolithiasis COMPARISON: CT 2009 DLP: 582.[address] scans at [facility] use at least one of these dose optimization techniques: automated e xposure control; mA and/or kV adjustment per patient size (includes targeted exams where dose is matc hed to clinical indication); or iterative reconstruction. FINDINGS: Small pericardial effusion. Small esophageal hiatal hernia. Cardiomegaly. Small right pleural effusio n with subsegmental atelectasis right lower lobe. Markedly enlarged prostate measuring 5.2 x 6.4 cm w ith evidence of bladder outlet obstruction. Small nonobstructing right calyceal tip calculus measuring 5 mm. Prominent right extrarenal pelvis or peripelvic cysts unchanged. Right ureter is decompressed. Pelvic phleboliths. Tiny phlebolith or tin y calculus adjacent to the right UVJ without evidence of obstruction. No hydronephrosis in the left kidney. Left ureter is decompressed. Adrenal glands are normal. Sigmoid diverticulosis. No evidence of acute diverticulitis. No evidence of high-grade small or large bowel obstruction. Splenic artery calcification. Gallbladder is decompressed. No periaortic lymphade nopathy. No pelvic lymphadenopathy. IMPRESSION: 1. Markedly enlarged prostate with evidence of bladder outlet obstruction. Thickening of the seminal vesicles bilaterally. Recommend correlation PSA. 2. No hydronephrosis in either kidney. 3. Nonobstructing right calyceal tip calculus measuring 5mm 4. Tiny phlebolith or tiny calculus adjacent to the right UVJ without evidence of obstruction. 5. Small pericardial effusion. Small right pleural effusion.
== END 2020-12-30 08:51 | disposition home or self-care (01) ==
LOC: RAD 08:55
PROVIDERS: PCP Electrodiagnostic Medicine; Visit Provider Urology
DX: N20.9 Urinary calculus, unspecified (principal); N40.1 Benign prostatic hyperplasia with lower urinary tract symptoms; I31.3 Pericardial effusion (noninflammatory); J90 Pleural effusion, not elsewhere classified
CPT/HCPCS: 74176; 81003

== ENCOUNTER → 2021-11-30 12:30 | Outpatient (BNVA) | payer MEDICARE, MEDICAID, SELFPAY | PROVIDERS: PCP Electrodiagnostic Medicine; Visit Provider Internal Medicine | DX: I12.9 Hypertensive chronic kidney disease with stage 1 through stage 4 chronic kidney disease, or unspecified chronic kidney disease (principal); E11.22 Type 2 diabetes mellitus with diabetic chronic kidney disease; N18.9 Chronic kidney disease, unspecified; Z79.84 Long term (current) use of oral hypoglycemic drugs; I25.10 Atherosclerotic heart disease of native coronary artery without angina pectoris; E78.5 Hyperlipidemia, unspecified; I25.5 Ischemic cardiomyopathy; I25.2 Old myocardial infarction | CPT/HCPCS: 99213 ==

== ENCOUNTER 2021-12-24 09:04 | Outpatient (CLI) | payer MEDICARE, MEDICAID, SELFPAY ==
--- NOTE | 2021-12-24 09:13 | XR_ITS ---
WS: [id number] Exam: XR KUB [id number] Date/Time of Exam: 12/24/2021 9:13 AM Reason For Exam: N20.9 - Urinary calculus, unspecified Comparison 12/16/2020. 4 mm calcification noted in the right abdomen that may represent a gallstone or kidney stone. No jose l obstruction or free air. Moderate amount retained stool throughout the large bowel. Nonspecific pel jennie calcifications. Organ margins are obscured. Aortoiliac atherosclerosis. Levoscoliosis of the lumb ar spine. Advanced DJD of the right hip. XR/XR KUB [id number] IMPRESSION: 1. 4 mm right abdominal calcification that may represent a renal stone or galls tone. 2. Mild ileus. Constipation. Additional nonacute findings as above.
== END 2021-12-24 09:05 | disposition home or self-care (01) ==
LOC: RAD 09:05
PROVIDERS: Visit Provider Urology
DX: N20.9 Urinary calculus, unspecified (principal); N40.1 Benign prostatic hyperplasia with lower urinary tract symptoms
CPT/HCPCS: 51741; 51798; 74018; 81003; 99213

== ENCOUNTER 2022-07-14 07:15 | Emergency (ER) | payer MEDICARE, MEDICAID, SELFPAY ==
[2022-07-14 07:21] VITALS: BP 145/107; PULSE 72; RESP 16; TEMP 36.4; O2SAT 96; BMI 22.6
--- NOTE | 2022-07-14 07:32 | W.ED.GIBLEED ---
HPI - GI Bleed General: Chief complaint: GI Bleed Stated complaint: blood in stool, high bp Time Seen by Provider: 07/14/22 07:17 Source: patient Mode of arrival: ambulatory History of Present Illness: 86-year-old male presents emergency room complaining of rectal bleeding. Began yesterday around 4 PM he had some lower abdominal cramping prior to that then began having the rectal bleeding. No fever sweats or chills since the rectal bleeding began has had very loose stools. Had 1 episode of vomiting at home no coffee-ground emesis no hematemesis. Patient is chronically anemic and has chronic kidney disease. He is not on any anticoagulants does take an aspirin daily. MD complaint: gross hematochezia Onset (ago): hour(s) (14-16) Pain Consistency: intermittent Severity: mild Relieving factors: none Exacerbating factors: none Associated symptoms: Reports abdominal pain, nausea, poor appetite, vomiting and weakness; Denies chills, easy bruising, epistaxis, fever(s), headache(s), malaise, other bleeding, rash or syncope Review of Systems Const: Denies: fever(s), chills or malaise ENMT: Denies: epistaxis Card: Denies: chest pain, palpitations, irregular heart rhythm or syncope Resp: Denies: dyspnea, productive cough or non-productive cough GI: Reports: abdominal pain, nausea, vomiting, diarrhea and hematochezia; Denies: hematemesis : Denies: flank pain, dysuria, urinary frequency or urinary urgency Skin/Breast: Denies: rash Neuro: Denies: headache(s) Pete/Lymph: Denies: easy bruising [facility] PFSH: Medical History (Updated 07/14/22 @ 09:08 by Cornelius Ledezma DO) Abnormal prostate exam ASHD (arteriosclerotic heart disease) Benign prostatic hyperplasia with urinary retention Bladder stone BPH NOS w ur obs/LUTS CAD (coronary artery disease) CKD (chronic kidney disease) Diabetes Dyslipidemia Elevated prostate specific antigen [PSA] Essential hypertension Ischemic cardiomyopathy Myocardial infarction Prostatic hemorrhage S/P extracorporeal shock wave therapy Urolithiasis Surgical History History of bladder stone Cystolitholapaxy May 2019 History of heart artery stent S/P angioplasty with stent S/P cystoscopy Family History Mother , 57 Cancer LEUKEMIA Father , 90 CAD (coronary artery disease) CHF (congestive heart failure) Brother Myocardial infarction CAD (coronary artery disease) Leukemia Social History Smoking and tobacco status: never smoked Alcohol intake: never Marital status: Current occupational status: retired Current gender identity: Male Physical Exam Const: GENERAL APPEARANCE: cooperative and comfortable ORIENTATION/CONSCIOUSNESS: Yes awake, Yes oriented to person, Yes oriented to place and Yes oriented to time HENMT: COMMON NORMALS: normocephalic, atraumatic and hearing grossly normal bilaterally HEAD & SCALP: normocephalic and atraumatic Resp: COMMON NORMALS: normal respiratory effort, No retractions, No use of accessory muscles and clear to auscultation bilaterally AUSCULTATION: clear to auscultation bilaterally Cardio: COMMON NORMALS: regular rate, regular rhythm and No murmurs present (Cardio) RATE: regular rate RHYTHM: regular rhythm GI: COMMON NORMALS: No hepatosplenomegaly present AUSCULTATION: Yes normoactive bowel sounds PALPATION: Yes Tenderness to palpation present (GI) (Lower abdominal discomfort no guarding or rebound), No Guarding due to palpation present (GI) and Yes No hepatosplenomegaly present Extremity: COMMON NORMALS: normal to inspection, capillary refill normal, no clubbing, cyanosis or edema, no calf tenderness and no pedal edema Neuro: SENSORIUM/ORIENTATION: Yes oriented to person, Yes oriented to place and Yes oriented to time Skin: COMMON NORMALS: no rashes or lesions noted GENERAL SKIN EXAM: no rashes or lesions noted Course Vital Signs: Vital signs: Vital Signs Temperature 97.5 F L 07/14/22 07:21 Pulse Rate 72 07/14/22 07:21 Respiratory Rate 16 07/14/22 07:21 Blood Pressure 145/107 07/14/22 07:21 Pulse Oximetry 96 07/14/22 07:21 Oxygen Delivery Me thod 07/14/22 07:21 MDM - GI Bleed Medical Decision Making CT shows colitis of distal descending colon and proximal sigmoid. There is mention in the CT about possible ischemia however patient has no significant abdominal pain his clinical presentation does not fit with that at this point. We will discharge patient home on oral antibiotics Cipro and metronidazole. Recommend that he stay with a clear liquid diet for the next 24 to 48 hours and advance as tolerated follow-up with his primary care doctor within the week to recheck his hemoglobin return if he has further problems or worsening bleeding. did advise patient he is likely to have more bloody stools before this resolves. Labs imaging reviewed as found in the chart. Medical Records I reviewed the patient's medical records. Lab Data I reviewed the patient's lab results. 07/14/22 07:35 07/14/22 07:35 Radiology Impressions Abdomen/Pelvis CT 07/14/22 07:44 IMPRESSION: 1. Long segment distal descending and proximal sigmoid colonic inflammation consistent with infectious, inflammatory or ischemic colitis. No sign of bowel necrosis. 2. Moderate simple pericardial effusion. 3. Small bilateral pleural effusions. 4. Marked enlargement of the prostate. 5. Incidental findings above. COMMENTS: Consistent with the [employer]'s Incidental Findings Committee white paper (J Am Boogie Radiol 2018): Any incidental renal lesion less than 1 cm or classified as too small to characterize, or any incidental cystic renal lesion characterized as simple-appearing, is likely benign. No follow-up imaging is recommended for these lesions per consensus recommendations based on imaging criteria. Laboratory Results WBC 11.4 10^3/uL (4.0-10.0) H 07/14/22 07:35 RBC 6.19 10^6/uL (4.1-5.3) H 07/14/22 07:35 Hgb 17.5 g/dL (11.7-16.6) H 07/14/22 07:35 Hct 54.2 % (42.0-52.0) H 07/14/22 07:35 MCV 87.6 fl (80-94) 07/14/22 07:35 MCH 28.3 pg (28.0-34.0) 07/14/22 07:35 MCHC 32.3 g/dL (30.0-36.0) 07/14/22 07:35 RDW 12.9 % (12.1-15.1) 07/14/22 07:35 Plt Count 217 10^3/cmm (130-400) 07/14/22 07:35 MPV 11.2 fL (7.4-10.4) H 07/14/22 07:35 Neut % (Auto) 82.3 % 07/14/22 07:35 Lymph % (Auto) 8.4 % 07/14/22 07:35 [place] % (Auto) 8.1 % 07/14/22 07:35 Eos % (Auto) 0.5 % 07/14/22 07:35 Baso % (Auto) 0.4 % 07/14/22 07:35 Neut # (Auto) 9.36 10^3/uL (1.8-7.7) H 07/14/22 07:35 Lymph # (Auto) 1.0 10^3/uL (0.8-4.8) 07/14/22 07:35 [place] # (Auto) 0.9 10^3/uL (0.2-0.9) 07/14/22 07:35 Eos # (Auto) 0.1 10^3/uL (0.0-0.8) 07/14/22 07:35 Baso # (Auto) 0.1 10^3/uL (0.0-0.1) 07/14/22 07:35 Nucleated RBC % (auto) 0 % 07/14/22 07:35 Nucleated RBCs # 0.0 /100WBC 07/14/22 07:35 PT 14.60 SECONDS (12.1-14.9) 07/14/22 07:35 INR 1.11 (0.8-1.2) 07/14/22 07:35 APTT 29.1 SECONDS (23.9-36.7) 07/14/22 07:35 Sodium 141 mmol/L (136-145) 07/14/22 07:35 Potassium 4.4 mmol/L (3.5-5.1) 07/14/22 07:35 Chloride 101 mmol/L (98-107) 07/14/22 07:35 Carbon Dioxide 28 mmol/L (22-29) 07/14/22 07:35 Anion Gap 16.4 (5-19) 07/14/22 07:35 BUN 18 mg/dL (8-23) 07/14/22 07:35 Creatinine 1.0 mg/dL (0.7-1.2) 07/14/22 07:35 GFR Calculation Not Reportable 07/14/22 07:35 Glucose 108 mg/dL (65-115) 07/14/22 07:35 Calculated Osmolality 294 mOsm/kg (285-295) 07/14/22 07:35 Calcium 9.3 mg/dL (8.5-10.5) 07/14/22 07:35 Total Bilirubin 1.1 mg/dL (0.15-1.2) 07/14/22 07:35 AST 17 U/L (0-40) 07/14/22 07:35 ALT 12 U/L (0-41) 07/14/22 07:35 Alkaline Phosphatase 107 U/L (40-130) 07/14/22 07:35 Total Protein 7.5 g/dL (6.6-8.7) 07/14/22 07:35 Albumin 4.3 g/dL (3.5-5.2) 07/14/22 07:35 Globulin 3.2 g/dL (1.3-4.6) 07/14/22 07:35 Discharge Plan Discharge Patient Disposition: Home Clinical Impression: Colitis Condition: Stable Prescriptions: New Cipro 500 mg tablet 500 mg PO BID Qty: 14 0RF metronidazole 500 mg tablet 500 mg PO BID 7 Days Qty: 14 0RF No Action metoprolol tartrate 50 mg tablet 50 mg PO BID aspirin [Enteric Coated Aspirin] 81 mg tablet,delayed release (DR/EC) 121.5 mg PO DAILY Hold Instructions: Preop Label Comments: Takes 1 tab in morning and 1/2 tab at night tamsulosin 0.4 mg capsule 0.4 mg PO BID Qty: 180 3RF lisinopril 20 mg tablet 20 mg PO DAILY Qty: 90 3RF simvastatin 40 mg tablet 40 mg PO DAILY Qty: 90 3RF Discharge Orders: Discharge ED (Routine); Ordered 07/14/22 Ordered By: Cornelius Ledezma Referrals: Bulmaro Godoy MD [Primary Care Provider] - Discharge Diet: Clear Liquid Discharge Activity: Increase activity as tolerated Patient Instructions: Opioid Safety, Pain Management Activity Restrictions/Additional Instructions: You are seen today for rectal bleeding. There is mild elevation in your white count your hemoglobin is normal. The remainder of your labs were not significantly abnormal. CT showed inflammation in the distal part of the colon and proximal sigmoid colon. Recommend that you start on oral antibiotics ciprofloxacin and metronidazole 1 twice daily for 7 days. Clinical diet for 24 to 48 hours and advance as tolerated follow-up with your primary care doctor within the next week. Coding Level of Care Code ED Mitochondrial Disorders Counselor for Joan Rose
--- NOTE | 2022-07-14 07:44 | CTR_ITS ---
PROCEDURE INFORMATION: Exam: CT Abdomen And Pelvis Without Contrast Exam date and time: 07/14/2022 7:50 AM Age: 86 years old Clinical indication: Abdominal pain; Localized; Lower; Additional info: Abdominal pain/rectal bleeding TECHNIQUE: Imaging protocol: Computed tomography of the abdomen and pelvis without contrast. Radiation optimization: All CT scans at this facility use at least one of these dose optimization techniques: automated exposure control; mA and/or kV adjustment per patient size (includes targeted exams where dose is matched to clinical indication); or iterative reconstruction. REPORTING DATA: Count of CT and Cardiac NM exams in prior 12 months: This patient has received 0 known CTs and 0 known cardiac nuclear medicine studies in the 12 months prior to the current study. COMPARISON: CT kidney stone [id number] 12/30/2020 9:09 AM RADIATION DOSE METRICS: Total DLP (mGy-cm): 378.73 FINDINGS: Lungs: There is subsegmental atelectasis in the lung bases. There is a benign calcified granuloma in the left lower lobe. Pleural spaces: Small simple bilateral pleural effusions. Heart: There is mild cardiac enlargement. Moderate simple pericardial effusion. Liver: The liver is normal. Gallbladder and bile ducts: The gallbladder is normal. There is no biliary dilation. Pancreas: The pancreas is unremarkable. Spleen: The spleen is unremarkable. Adrenal glands: The adrenal glands are unremarkable. Kidneys and ureters: Nonobstructive right renal stones are present. No hydronephrosis or ureteral dilation. There are simple parapelvic cysts in the right kidney. There is a solitary nonobstructive stone the lower pole of the left kidney. There is no hydronephrosis or ureteral dilation on the left. Stomach and bowel: The stomach is decompressed, preventing meaningful evaluation of wall thickness. The small bowel is nondilated. The ascending, transverse and proximal descending colon is normal. There is circumferential mucosal thickening and pericolonic edema extending from the mid descending colon through the proximal sigmoid. No intramural gas. Distal sigmoid and rectum demonstrate no sign of inflammation. There is moderate sigmoid diverticulosis without evidence of diverticulitis. Appendix: The appendix is normal. Intraperitoneal space: Trace pelvic free fluid. There is no free air or significant intraperitoneal free fluid. Vasculature: There is severe aortic atherosclerotic disease. Lymph nodes: There is no lymphadenopathy in the retroperitoneum, mesentery, pelvis or inguinal regions. Urinary bladder: The urinary bladder is unremarkable. Reproductive: The prostate is markedly enlarged measuring 7.2 cm diameter. Bones/joints: There is moderate degenerative disease in the lumbar spine. There is severe degenerative disease at the right hip. There is mild degenerative disease at the left hip. The bony pelvis is intact. There are healed right posterior 10th and 11th rib fractures. Soft tissues: The abdominal wall is intact. CT/CT abdomen pelvis wo con [id number] IMPRESSION: 1. Long segment distal descending and proximal sigmoid colonic inflammation consistent with infectious, inflammatory or ischemic colitis. No sign of bowel necrosis. 2. Moderate simple pericardial effusion. 3. Small bilateral pleural effusions. 4. Marked enlargement of the prostate. 5. Incidental findings above. COMMENTS: Consistent with the [place] [employer]'s Incidental Findings Committee white paper (J Am Boogie Radiol 2018): Any incidental renal lesion less than 1 cm or classified as too small to characterize, or any incidental cystic renal lesion characterized as simple-appearing, is likely benign. No follow-up imaging is recommended for these lesions per consensus recommendations based on imaging criteria.
[2022-07-14 07:45] LABS: Basophils # 0.1 10^3/uL (0.0-0.1); Basophils % 0.4 %; Eosinophils # 0.1 10^3/uL (0.0-0.8); Eosinophils % 0.5 %; Hematocrit 54.2 % (42.0-52.0); Hemoglobin 17.5 g/dL (11.7-16.6); Lymphocytes % 8.4 %; Mean Corpuscular HGB Conc 32.3 g/dL (30.0-36.0); Mean Corpuscular Hemoglobin 28.3 pg (28.0-34.0); Mean Corpuscular Volume 87.6 fl (80-94); Mean Platelet Volume 11.2 fL (7.4-10.4); Monocytes # 0.9 10^3/uL (0.2-0.9); Monocytes % 8.1 %; Neutrophils # 9.36 10^3/uL (1.8-7.7); Neutrophils % 82.3 %; Nucleated Red Blood Cells % 0 %; Platelet Count 217 10^3/cmm (130-400); Red Blood Count 6.19 10^6/uL (4.1-5.3); Red Cell Distribution Width 12.9 % (12.1-15.1); White Blood Count 11.4 10^3/uL (4.0-10.0)
[2022-07-14 08:06] LABS: INR 1.11 (0.8-1.2)
[2022-07-14 08:07] LABS: Partial Thromboplastin Time 29.1 SECONDS (23.9-36.7)
[2022-07-14 08:10] LABS: Alanine Aminotransferase 12 U/L (0-41); Albumin Level 4.3 g/dL (3.5-5.2); Alkaline Phosphatase 107 U/L (40-130); Anion Gap 16.4 (5-19); Aspartate Amino Transferase 17 U/L (0-40); Blood Urea Nitrogen 18 mg/dL (8-23); Calcium 9.3 mg/dL (8.5-10.5); Carbon Dioxide 28 mmol/L (22-29); Chloride 101 mmol/L (98-107); Creatinine Clr Calc Pharmacy 47.7609; Globulin 3.2 g/dL (1.3-4.6); Glucose 108 mg/dL (65-115); Osmolality Calculated 294 mOsm/kg (285-295); Potassium 4.4 mmol/L (3.5-5.1); Sodium 141 mmol/L (136-145); Total Bilirubin 1.1 mg/dL (0.15-1.2); Total Protein 7.5 g/dL (6.6-8.7)
== END 2022-07-14 09:32 | disposition home or self-care (01) ==
PROVIDERS: Emergency Provider Family Medicine; PCP Family Medicine
DX: K52.9 Noninfective gastroenteritis and colitis, unspecified (principal); Z79.82 Long term (current) use of aspirin; I31.39 Other pericardial effusion (noninflammatory); I25.10 Atherosclerotic heart disease of native coronary artery without angina pectoris; I12.9 Hypertensive chronic kidney disease with stage 1 through stage 4 chronic kidney disease, or unspecified chronic kidney disease; N18.9 Chronic kidney disease, unspecified; I25.2 Old myocardial infarction
CPT/HCPCS: 74176; 80053; 85025; 85610; 85730; 99284

== ENCOUNTER → 2022-07-21 12:07 | Outpatient (BNVA) | payer MEDICARE, MEDICAID, SELFPAY | PROVIDERS: PCP Family Medicine; Visit Provider Family Medicine | DX: Z51.81 Encounter for therapeutic drug level monitoring (principal) | CPT/HCPCS: 85025 ==

== ENCOUNTER → 2022-08-30 13:44 | Outpatient (BNVA) | payer MEDICARE, MEDICAID, SELFPAY | PROVIDERS: PCP Family Medicine; Visit Provider Internal Medicine | DX: I12.9 Hypertensive chronic kidney disease with stage 1 through stage 4 chronic kidney disease, or unspecified chronic kidney disease (principal); E11.22 Type 2 diabetes mellitus with diabetic chronic kidney disease; N18.9 Chronic kidney disease, unspecified; I25.2 Old myocardial infarction; I25.10 Atherosclerotic heart disease of native coronary artery without angina pectoris; E78.5 Hyperlipidemia, unspecified; I25.5 Ischemic cardiomyopathy | CPT/HCPCS: 99214 ==

== ENCOUNTER 2023-01-11 12:59 | Emergency (ER) | payer MEDICARE, MEDICAID, SELFPAY ==
[2023-01-11 13:03] VITALS: BMI 21.7
[2023-01-11 13:05] VITALS: BP 145/79; PULSE 73; RESP 16; TEMP 36.6; O2SAT 97
--- NOTE | 2023-01-11 13:05 | XRR_ITS ---
PROCEDURE INFORMATION: Exam: XR Right Ankle Exam date and time: 01/11/2023 1:20 PM Age: 87 years old Clinical indication: Injury or trauma; Other: Pain after fall TECHNIQUE: Imaging protocol: Radiologic exam of the right ankle. Views: 3 or more views. COMPARISON: CR XR tibia fibula RT 2V [id number] 01/11/2023 1:18 PM FINDINGS: Bones/joints: There is no evidence for acute fracture or malalignment. There is osteophyte off the posterior calcaneus. Soft tissues: There are vascular calcifications. XR/XR ankle RT min 3V* [id number] IMPRESSION: No acute findings.
--- NOTE | 2023-01-11 13:16 | XRR_ITS ---
PROCEDURE INFORMATION: Exam: XR Right Tibia and Fibula Exam date and time: 01/11/2023 1:18 PM Age: 87 years old Clinical indication: Injury or trauma; Other: Pain after fall TECHNIQUE: Imaging protocol: Radiologic exam of the right tibia and fibula. Views: 2 views. COMPARISON: US ROR venous duplex LE RT 06/08/2021 2:36 PM FINDINGS: Bones/joints: There is no evidence for acute fracture or malalignment. Soft tissues: There is vascular atherosclerotic calcification. XR/XR tibia fibula RT 2V [id number] IMPRESSION: No acute findings.
--- NOTE | 2023-01-11 13:18 | XRR_ITS ---
PROCEDURE INFORMATION: Exam: XR Right Foot Exam date and time: 01/11/2023 1:22 PM Age: 87 years old Clinical indication: Injury or trauma; Other: Pain after fall TECHNIQUE: Imaging protocol: Radiologic exam of the right foot. Views: 3 or more views. COMPARISON: CR XR ankle RT min 3V* [id number] 01/11/2023 1:20 PM FINDINGS: Bones/joints: There is no evidence for acute fracture or malalignment. There is osteophyte off the posterior calcaneus. Soft tissues: Normal. XR/XR foot RT min 3V* [id number] IMPRESSION: No acute findings.
--- NOTE | 2023-01-11 13:28 | W.ED.EXTPRO ---
HPI - Extremity Problem General: Chief complaint: Extremity Injury, Lower Stated complaint: fall, right ankle pain Time Seen by Provider: 01/11/23 13:12 Source: patient Mode of arrival: ambulatory Limitations: no limitations History of Present Illness: 87-year-old male states that he fell 10 days ago. He did scrape his right anterior lower leg he does have an abrasion there family become concerned he has had some increased swelling and bruising at his ankle he denies really any pain. He has been ambulatory on it. Associated symptoms: Deny chest pain, fever(s) or rash Review of Systems Const: Denies: fever(s), chills, body aches or change in appetite ENMT: Denies: throat pain or dental pain Card: Denies: chest pain Resp: Denies: dyspnea GI: Denies: abdominal pain, nausea, vomiting or diarrhea Musc: Denies: neck pain or back pain Skin/Breast: Reports: erythema; Denies: rash Neuro: Denies: headache(s) PFSH ED PFSH: Medical History Abnormal prostate exam ASHD (arteriosclerotic heart disease) Benign prostatic hyperplasia with urinary retention Bladder stone BPH NOS w ur obs/LUTS CAD (coronary artery disease) CKD (chronic kidney disease) Diabetes Dyslipidemia Elevated prostate specific antigen [PSA] Essential hypertension Ischemic cardiomyopathy Myocardial infarction Prostatic hemorrhage S/P extracorporeal shock wave therapy Urolithiasis Surgical History History of bladder stone Cystolitholapaxy May 2019 History of heart artery stent S/P angioplasty with stent S/P cystoscopy Family History Mother , 57 Cancer LEUKEMIA Father , 90 CAD (coronary artery disease) CHF (congestive heart failure) Brother Myocardial infarction CAD (coronary artery disease) Leukemia Social History Smoking and tobacco status: never smoked Alcohol intake: never Substance/Drug Use: never Marital status: Current occupational status: retired Current gender identity: Male Physical Exam Const: COMMON NORMALS: no acute distress, patient oriented x3 and healthy appearing HENMT: COMMON NORMALS: normocephalic and atraumatic HEAD & SCALP: normocephalic and atraumatic Neck/C-Spine: COMMON NORMALS: full ROM and supple Chest: COMMONS NORMALS: normal inspection of the chest Resp: COMMON NORMALS: normal respiratory effort Cardio: COMMON NORMALS: regular rate, regular rhythm and No murmurs present (Cardio) RATE: regular rate RHYTHM: regular rhythm Extremity: NARRATIVE EXTREMITY EXAM: Contusion noted to right ankle with some swelling to his right lower leg he does have an abrasion that is roughly 4 cm over his anterior west with some slight erythema no tenderness to touch no calf tenderness distal pulses intact Neuro: COMMON NORMALS: patient oriented x3, moves all extremities and no focal motor deficits Psych: COMMON NORMALS: mental status grossly normal, Normal thought process present and cooperative THOUGHT PROCESS: Normal thought process present Skin: COMMON NORMALS: no rashes or lesions noted and no wounds GENERAL SKIN EXAM: no rashes or lesions noted Course Vital Signs: Vital signs: Vital Signs Temperature 97.9 F 01/11/23 13:05 Pulse Rate 73 01/11/23 13:05 Respiratory Rate 16 01/11/23 13:05 Blood Pressure 145/79 01/11/23 13:05 Pulse Oximetry 97 01/11/23 13:05 Oxygen Delivery Me thod Room Air 01/11/23 13:05 MDM - Extremity (Nontraumatic) Medical Decision Making Patient presents here with contusion to his lower leg along with an abrasion he has some mild erythema we will place him on antibiotics his x-rays here are negative he has no signs of DVT is distal pulses as well he is stable for discharge Medical Records I reviewed the patient's medical records. XR interpretation done by ED provider, pending radiology final review ED provider radiology interpretation(s): xrays show no acute fx Discharge Plan Discharge Patient Disposition: Home Clinical Impression: Contusion, Abrasion Fall Qualifiers: Encounter type: initial encounter Qualified Code(s): W19.XXXA - Unspecified fall, initial encounter Condition: Stable Prescriptions: New cephalexin 500 mg capsule 500 mg PO TID 7 Days Qty: 21 0RF No Action aspirin [Enteric Coated Aspirin] 81 mg tablet,delayed release (DR/EC) 121.5 mg PO DAILY Hold Instructions: Resume on 06/29/19. Patient Comments: Takes 1 tab in morning and 1/2 tab at night furosemide [Lasix] 20 mg tablet 20 mg PO BID Qty: 28 0RF lisinopril 20 mg tablet 20 mg PO DAILY Qty: 90 3RF simvastatin 40 mg tablet 40 mg PO DAILY Qty: 90 3RF metoprolol tartrate 50 mg tablet 50 mg PO BID Qty: 60 6RF tamsulosin 0.4 mg capsule 0.4 mg PO BID Qty: 180 3RF Cipro 500 mg tablet 500 mg PO BID Qty: 14 0RF Discharge Orders: Discharge ED (Routine); Ordered 01/11/23 Ordered By: Diana Diana Referrals: Bulmaro Godoy MD [Primary Care Provider] - 1-3 days Discharge Diet: Advance as tolerated Discharge Activity: Resume usual activity Patient Instructions: Contusion in Adults (ED), Abrasion (ED) Coding Level of Care Code ED Bilingual Case Manager for Joan Rose
[2023-01-11] MEDS: cefTRIAXone 1,000 MG in water for injection-sterile 2.1 ML 999 MG IM (13:36)
== END 2023-01-11 13:55 | disposition home or self-care (01) ==
PROVIDERS: Emergency Provider Emergency Medicine; PCP Family Medicine
DX: S90.01XA Contusion of right ankle, initial encounter (principal); S80.811A Abrasion, right lower leg, initial encounter; I25.10 Atherosclerotic heart disease of native coronary artery without angina pectoris; I12.9 Hypertensive chronic kidney disease with stage 1 through stage 4 chronic kidney disease, or unspecified chronic kidney disease; E11.22 Type 2 diabetes mellitus with diabetic chronic kidney disease; N18.9 Chronic kidney disease, unspecified; E78.5 Hyperlipidemia, unspecified; I25.2 Old myocardial infarction; W19.XXXA Unspecified fall, initial encounter
CPT/HCPCS: 73590; 73610; 73630; 96372; 99284; J0696

== ENCOUNTER → 2023-07-20 12:56 | Outpatient (BNVA) | payer MEDICARE, MEDICAID, SELFPAY | PROVIDERS: PCP Family Medicine; Visit Provider Internal Medicine | DX: R07.9 Chest pain, unspecified (principal) | CPT/HCPCS: 93005; 99214 ==

== ENCOUNTER 2023-12-15 05:39 | Emergency (ER) | payer MEDICARE, MEDICAID, SELFPAY ==
[2023-12-15 05:44] VITALS: BP 195/127; PULSE 86; RESP 16; TEMP 37; O2SAT 95; BMI 20.9
--- NOTE | 2023-12-15 05:46 | W.ED.ABDPA2 ---
HPI - Abdominal Pain General: Chief Complaint: Urogenital-Male Stated Complaint: Lower abd pain Time Seen by Provider: 12/15/23 05:41 History of Present Illness: 87-year-old male presents emergency room with difficulty with urination. Began yesterday. He said frequent urination a very small amount feels like he cannot empty his bladder. He said difficulty with urinary retention in the past due to BPH. He also has a history of atrial fibrillation and is on Xarelto. He attempted to self cath and had difficulty and cannot have faraz blood from the meatus. Complaining of lower abdominal pain at the midline no fever sweats or chills Associated Symptoms: Denies chills, dysuria and fever(s) Related Data Home Medications Medication Instructions Recorded Confirmed rivaroxaban 20 mg tablet (Xarelto) 20 mg PO QPM 12/15/23 12/15/23 Previous Rx's Medication Instructions Recorded tamsulosin 0.4 mg capsule 0.4 mg PO BID #180 caps 10/15/22 metoprolol tartrate 50 mg tablet 50 mg PO BID #60 tabs 05/20/23 lisinopril 20 mg tablet 20 mg PO DAILY #90 tabs 06/09/23 simvastatin 40 mg tablet 40 mg PO DAILY #90 tabs 06/09/23 furosemide 20 mg tablet (Lasix) 20 mg PO DAILY #90 tabs 07/20/23 ciprofloxacin HCl 500 mg tablet 500 mg PO BID #14 tabs 12/15/23 (Cipro) Allergies Allergy/AdvReac Type Severity Reaction Status Date / Time Latex, Natural Rubber Allergy ALGY-Bliste Verified 07/20/23 12:31 r morphine Allergy ADR-Confusi Verified 07/20/23 12:31 on Review of Systems Const: Denies: fever(s) or chills Card: Denies: chest pain Resp: Denies: dyspnea GI: Reports: abdominal pain : Reports: difficulty urinating, urinary frequency, urinary dribbling and difficulty starting urination; Denies: dysuria or urinary urgency Musc: Denies: neck pain or back pain Skin/Breast: Denies: rash PFS ED PFSH: Medical History (Updated 12/15/23 @ 07:50 by Cornelius Ledezma DO) BPH NOS w ur obs/LUTS Urolithiasis Prostatic hemorrhage Bladder stone Benign prostatic hyperplasia with urinary retention CAD (coronary artery disease) ASHD (arteriosclerotic heart disease) Diabetes Dyslipidemia Essential hypertension CKD (chronic kidney disease) Myocardial infarction Ischemic cardiomyopathy S/P extracorporeal shock wave therapy Abnormal prostate exam Elevated prostate specific antigen [PSA] Surgical History History of bladder stone Cystolitholapaxy May 2019 S/P cystoscopy S/P angioplasty with stent History of heart artery stent Family History Mother , 57 Cancer LEUKEMIA Father , 90 CAD (coronary artery disease) Congestive heart failure (CHF) Brother Myocardial infarction CAD (coronary artery disease) Leukemia Social History Smoking and tobacco/nicotine status: never used tobacco/nicotine Alcohol intake: never Substance/Drug Use: never Marital status: Current occupational status: retired Current gender identity: Male Physical Exam Narrative: EXAM NARRATIVE: Blood on patient's underwear and T-shirt from urine. Const: GENERAL APPEARANCE: cooperative and comfortable ORIENTATION/CONSCIOUSNESS: Yes awake, Yes oriented to person, Yes oriented to place and Yes oriented to time HENMT: COMMON NORMALS: normocephalic, atraumatic and hearing grossly normal bilaterally HEAD & SCALP: normocephalic and atraumatic Resp: COMMON NORMALS: normal respiratory effort, No retractions, No use of accessory muscles and clear to auscultation bilaterally AUSCULTATION: clear to auscultation bilaterally Cardio: COMMON NORMALS: regular rate, regular rhythm and No murmurs present (Cardio) RATE: regular rate RHYTHM: regular rhythm GI: COMMON NORMALS: Soft to palpation and No hepatosplenomegaly present AUSCULTATION: Yes normoactive bowel sounds PALPATION: Yes Soft to palpation, No Tenderness to palpation present (GI), No Guarding due to palpation present (GI) and Yes No hepatosplenomegaly present Extremity: COMMON NORMALS: normal to inspection, capillary refill normal, no clubbing, cyanosis or edema, no calf tenderness and no pedal edema Neuro: SENSORIUM/ORIENTATION: Yes oriented to person, Yes oriented to place and Yes oriented to time Skin: COMMON NORMALS: no rashes or lesions noted GENERAL SKIN EXAM: no rashes or lesions noted Course Vital Signs: Vital signs: Vital Signs Temperature 98.6 F 12/15/23 05:44 Pulse Rate 65 12/15/23 06:42 Respiratory Rate 17 12/15/23 06:20 Blood Pressure 125/72 12/15/23 06:42 Pulse Oximetry 92 12/15/23 06:42 Oxygen Delivery Me thod Room Air 12/15/23 05:44 MDM - Abdominal Pain Medical Decision Making Urinary retention. I think some of the bleeding is due to his use of the catheter traumatic with his BPH and being on Xarelto exacerbates this. He also mention the nurses been reusing the same catheter potentially for years. Encouraged him to talk to his urologist or primary care physician about getting him appropriate catheters if they are to continue to having him self caths from time to time. Will discharge him home on ciprofloxacin he was given initial dose ceftriaxone here urine to be cultured. Additionally we will change him to a leg bag education given by nursing on how to use the leg bag. Case management to make arrangements for follow-up with urology. As per reviewing discharge patient mention difficulty with bowels from time to time rectal exam done normal external exam noted no signs of hemorrhoids. There is no rectal bleeding normal rectal sphincter tone. Encourage patient to follow-up with this with his primary care physician. Lab Data 12/15/23 05:55 12/15/23 05:55 Labs/Radiology: Laboratory Results WBC 13.85 10^3/uL (3.29-11.43) H 12/15/23 05:55 RBC 5.45 10^6/uL (3.85-5.65) 12/15/23 05:55 Hgb 16.60 g/dL (11.27-16.99) 12/15/23 05:55 Hct 49.0 % (37-53) 12/15/23 05:55 MCV 89.9 fl (82-101) 12/15/23 05:55 MCH 30.5 pg (27-33) 12/15/23 05:55 MCHC 33.9 g/dL (30-55) 12/15/23 05:55 RDW 12.1 % (12.1-15.1) 12/15/23 05:55 Plt Count 181 10^3/cmm (157-399) 12/15/23 05:55 MPV 11.7 fL (7.4-10.4) H 12/15/23 05:55 Neut % (Auto) 87.2 % 12/15/23 05:55 Lymph % (Auto) 4.2 % 12/15/23 05:55 [place] % (Auto) 7.7 % 12/15/23 05:55 Eos % (Auto) 0.1 % 12/15/23 05:55 Baso % (Auto) 0.4 % 12/15/23 05:55 Neut # (Auto) 12.08 10^3/uL (1.8-7.7) H 12/15/23 05:55 Lymph # (Auto) 0.6 10^3/uL (0.8-4.8) L 12/15/23 05:55 [place] # (Auto) 1.1 10^3/uL (0.2-0.9) H 12/15/23 05:55 Eos # (Auto) 0.0 10^3/uL (0.0-0.8) 12/15/23 05:55 Baso # (Auto) 0.1 10^3/uL (0.0-0.1) 12/15/23 05:55 Nucleated RBC % (auto) 0 % 12/15/23 05:55 Nucleated RBCs # 0.0 /100WBC 12/15/23 05:55 PT 22.70 SECONDS (12.1-14.9) H 12/15/23 05:55 INR 1.92 (0.8-1.2) H 12/15/23 05:55 Sodium 136 mmol/L (136-145) 12/15/23 05:55 Potassium 4.4 mmol/L (3.5-5.1) 12/15/23 05:55 Chloride 99 mmol/L (98-107) 12/15/23 05:55 Carbon Dioxide 21 mmol/L (22-29) L 12/15/23 05:55 Anion Gap 20.4 (5-19) H 12/15/23 05:55 BUN 23 mg/dL (8-23) 12/15/23 05:55 Creatinine 1.0 mg/dL (0.7-1.2) 12/15/23 05:55 GFR Calculation Not Reportable 12/15/23 05:55 Glucose 190 mg/dL (65-115) H 12/15/23 05:55 Calculated Osmolality 291 mOsm/kg (285-295) 12/15/23 05:55 Calcium 9.5 mg/dL (8.5-10.5) 12/15/23 05:55 Total Bilirubin 1.2 mg/dL (0.15-1.2) 12/15/23 05:55 AST 21 U/L (0-40) 12/15/23 05:55 ALT 16 U/L (0-41) 12/15/23 05:55 Alkaline Phosphatase 88 U/L (40-130) 12/15/23 05:55 Total Protein 7.4 g/dL (6.6-8.7) 12/15/23 05:55 Albumin 4.4 g/dL (3.5-5.2) 12/15/23 05:55 Globulin 3.0 g/dL (1.3-4.6) 12/15/23 05:55 Urine Color Red (Yellow) A 12/15/23 06:08 Urine Appearance Cloudy (CLEAR) A 12/15/23 06:08 Urine pH TNP 12/15/23 06:08 Ur Specific [place] TNP 12/15/23 06:08 Urine Protein TNP 12/15/23 06:08 Urine Glucose (UA) TNP 12/15/23 06:08 Urine Ketones TNP 12/15/23 06:08 Urine Blood TNP 12/15/23 06:08 Urine Nitrate TNP 12/15/23 06:08 Urine Bilirubin TNP 12/15/23 06:08 Urine Urobilinogen TNP 12/15/23 06:08 Ur Leukocyte Esterase TNP 12/15/23 06:08 Urine RBC Too numerous to cnt /hpf (0-2) H 12/15/23 06:08 Urine WBC 21-50 /hpf (0-5) H 12/15/23 06:08 Ur Squamous Epith Cells None /hpf (0-5) 12/15/23 06:08 Amorphous Sediment Not Reportable 12/15/23 06:08 Urine Bacteria 1+ /hpf (NONE) H 12/15/23 06:08 No radiology studies performed this visit Discharge Plan Discharge Patient Disposition: Home Clinical Impression: Acute retention of urine, Urinary tract infection Condition: Stable Prescriptions: New Cipro 500 mg tablet 500 mg PO BID Qty: 14 0RF No Action furosemide [Lasix] 20 mg tablet 20 mg PO DAILY Qty: 90 3RF tamsulosin 0.4 mg capsule 0.4 mg PO BID Qty: 180 3RF metoprolol tartrate 50 mg tablet 50 mg PO BID Qty: 60 6RF simvastatin 40 mg tablet 40 mg PO DAILY Qty: 90 3RF lisinopril 20 mg tablet 20 mg PO DAILY Qty: 90 3RF Xarelto 20 mg tablet 20 mg PO QPM Rx Instructions: must administer with evening meal Discharge Orders: Discharge ED (Routine); Ordered 12/15/23 Ordered By: Cornelius Ledezma Referrals: Bulmaro Godoy MD [Primary Care Provider] - Discharge Diet: Usual diet Discharge Activity: Resume usual activity Patient Instructions: Urinary Retention in Men (ED), Urinary Tract Infection in Men (ED), Opioid Safety, Pain Management Activity Restrictions/Additional Instructions: Thank you for choosing [facility] for your healthcare needs today. It is very important that you follow up as instructed or that you return to the Emergency Department should you have concerns or if your condition changes or worsens in any way. You were seen today with complaints of bloody urine and difficulty with urination. You are found to have urinary retention most likely from prostate enlargement. The blood in the urine most likely result of attempted catheterization complicated by the blood thinner that you take (Xarelto). Also concerned about the possibility infection urine will be cultured. Your white count was slightly elevated. You were given a single dose of antibiotics emergency room start oral antibiotics tomorrow 1 pill twice a day until the culture result is available. You will be discharged home with the Gupta leg bag to rule out your bladder to empty. Case management make arrangements for you to follow-up with urology. Coding Level of Care Code ED Yarn Examiner for Joan Rose
[2023-12-15 05:50] VITALS: BP 186/124
[2023-12-15 06:05] LABS: Basophils # 0.1 10^3/uL (0.0-0.1); Basophils % 0.4 %; Eosinophils % 0.1 %; Lymphocytes # 0.6 10^3/uL (0.8-4.8); Lymphocytes % 4.2 %; Mean Corpuscular HGB Conc 33.9 g/dL (30-55); Mean Corpuscular Hemoglobin 30.5 pg (27-33); Mean Corpuscular Volume 89.9 fl (82-101); Mean Platelet Volume 11.7 fL (7.4-10.4); Monocytes # 1.1 10^3/uL (0.2-0.9); Monocytes % 7.7 %; Neutrophils # 12.08 10^3/uL (1.8-7.7); Neutrophils % 87.2 %; Nucleated Red Blood Cells % 0 %; Platelet Count 181 10^3/cmm (157-399); Red Blood Count 5.45 10^6/uL (3.85-5.65); Red Cell Distribution Width 12.1 % (12.1-15.1); White Blood Count 13.85 10^3/uL (3.29-11.43)
[2023-12-15 06:14] LABS: INR 1.92 (0.8-1.2)
[2023-12-15 06:15] LABS: Charge for UA Resulting for Rev
[2023-12-15 06:18] LABS: Alanine Aminotransferase 16 U/L (0-41); Albumin Level 4.4 g/dL (3.5-5.2); Alkaline Phosphatase 88 U/L (40-130); Blood Urea Nitrogen 23 mg/dL (8-23); Calcium 9.5 mg/dL (8.5-10.5); Carbon Dioxide 21 mmol/L (22-29); Chloride 99 mmol/L (98-107); Creatinine Clr Calc Pharmacy 45.5408; Glucose 190 mg/dL (65-115); Osmolality Calculated 291 mOsm/kg (285-295); Sodium 136 mmol/L (136-145); Total Bilirubin 1.2 mg/dL (0.15-1.2); Total Protein 7.4 g/dL (6.6-8.7)
[2023-12-15 06:20] VITALS: BP 118/73; PULSE 74; RESP 17; O2SAT 92
[2023-12-15 06:26] LABS: Anion Gap 20.4 (5-19); Aspartate Amino Transferase 21 U/L (0-40); Potassium 4.4 mmol/L (3.5-5.1)
[2023-12-15 06:29] LABS: Urine Color Red (Yellow)
[2023-12-15 06:30] LABS: Add Urine Culture? Yes; Bacteria Urine 1+ /hpf; RBC Urine TOO NUMEROUS TO CNT /hpf (0-2); UA Manual Slide Review YES; Urine Appearance Cloudy (CLEAR); WBC Urine 21-50 /hpf (0-5)
[2023-12-15 06:42] VITALS: BP 125/72; PULSE 65; O2SAT 92
--- NOTE | 2023-12-15 07:24 | PC.NURSE ---
per Dr. Ledezma to irrigate bladder with 2L sterile water. input 2L sterile water, output 2,200 cc. output was red in color with clots at first, after irrigation fluid output was clear without clots noted. Dr. Ledezma notified of findings.
--- NOTE | 2023-12-15 07:41 | PC.PHAR ---
Pt states has taken morning meds. Has rx bottles in the room.
[2023-12-15] MEDS: sodium chloride 0.9% 500 ML 999 ML IV (07:44)
[2023-12-15] MEDS: cefTRIAXone 1,000 mg SDV 1000 MG IVP (07:44)
[2023-12-15 08:39] VITALS: BP 148/80; PULSE 71; O2SAT 97
== END 2023-12-15 08:40 | disposition home or self-care (01) ==
PROVIDERS: Emergency Provider Family Medicine; PCP Family Medicine
DX: R33.9 Retention of urine, unspecified (principal); N39.0 Urinary tract infection, site not specified; I25.10 Atherosclerotic heart disease of native coronary artery without angina pectoris; E11.22 Type 2 diabetes mellitus with diabetic chronic kidney disease; I12.9 Hypertensive chronic kidney disease with stage 1 through stage 4 chronic kidney disease, or unspecified chronic kidney disease; N18.9 Chronic kidney disease, unspecified; E78.5 Hyperlipidemia, unspecified; I25.2 Old myocardial infarction; I25.5 Ischemic cardiomyopathy
CPT/HCPCS: 51702; 80053; 81003; 81015; 85025; 85610; 87086; 96361; 96374; 99284; J0696; J7040

== ENCOUNTER → 2024-08-10 08:38 | Outpatient (BNVA) | payer MEDICARE, MEDICAID, SELFPAY | PROVIDERS: PCP Family Medicine; Visit Provider Family Medicine | DX: R31.9 Hematuria, unspecified (principal) | CPT/HCPCS: 81000; 87086 ==

== ENCOUNTER 2024-10-29 08:26 | Inpatient (IN) | payer MEDICARE, MEDICAID, SELFPAY ==
[2024-10-29] VITALS (15 sets, daily range): BP systolic 130–170; BP diastolic 76–114; PULSE 73–102; RESP 17–21; TEMP 36.5–36.6; O2SAT 90–96; BMI 22.6
--- NOTE | 2024-10-29 08:48 | W.ED.EXTPRO ---
HPI - Extremity Problem General: Chief complaint: Extremity Problem,Nontraumatic Stated complaint: R leg pain Time Seen by Provider: 10/29/24 08:34 History of Present Illness: 88-year-old male Associated symptoms: Deny chest pain, fever(s) or rash Related Data Previous Rx's ?Medication ?Instructions ?Recorded fluconazole 150 mg tablet 150 mg PO DAILY 3 days #3 tabs 12/28/23 nystatin 100,000 unit/gram topical 1 applic topical BID #30 grams 12/28/23 cream lisinopril 20 mg tablet 20 mg PO DAILY #90 tabs 06/06/24 simvastatin 40 mg tablet 40 mg PO DAILY #90 tabs 06/06/24 metoprolol tartrate 50 mg tablet 50 mg PO BID #60 tabs 06/15/24 furosemide 20 mg tablet (Lasix) 20 mg PO DAILY #90 tabs 07/11/24 rivaroxaban 20 mg tablet (Xarelto) See Rx Instructions .Route 07/11/24 .COMPLEX #90 tabs tamsulosin 0.4 mg capsule 0.4 mg PO BID #180 caps 08/10/24 Allergies Allergy/AdvReac Type Severity Reaction Status Date / Time Latex, Natural Rubber Allergy ALGY-Bliste Verified 07/20/23 12:31 r morphine Allergy ADR-Confusi Verified 07/20/23 12:31 on Review of Systems Const: Denies: fever(s) or chills Card: Denies: chest pain Resp: Denies: dyspnea GI: Denies: abdominal pain, nausea or vomiting : Denies: dysuria, urinary frequency or urinary urgency Musc: Denies: neck pain or back pain Skin/Breast: Denies: rash [facility] ED PFSH: Medical History (Updated 08/26/24 @ 10:51 by Bulmaro Godoy MD) BPH NOS w ur obs/LUTS Urolithiasis Prostatic hemorrhage Bladder stone Benign prostatic hyperplasia with urinary retention CAD (coronary artery disease) ASHD (arteriosclerotic heart disease) Diabetes Dyslipidemia Essential hypertension CKD (chronic kidney disease) Myocardial infarction Ischemic cardiomyopathy S/P extracorporeal shock wave therapy Abnormal prostate exam Elevated prostate specific antigen [PSA] Surgical History History of bladder stone Cystolitholapaxy May 2019 S/P cystoscopy S/P angioplasty with stent History of heart artery stent Family History Mother , 57 Cancer LEUKEMIA Father , 90 CAD (coronary artery disease) Congestive heart failure (CHF) Brother Myocardial infarction CAD (coronary artery disease) Leukemia Social History (Updated 08/26/24 @ 10:53 by Bulmaro Godoy MD) Smoking and tobacco/nicotine status: unknown if used tobacco/nicotine Alcohol intake: never Substance/Drug Use: never Marital status: Current occupational status: retired Current gender identity: Male Physical Exam Const: COMMON NORMALS: no acute distress GENERAL APPEARANCE: cooperative and comfortable ORIENTATION/CONSCIOUSNESS: Yes awake, Yes oriented to person, Yes oriented to place and Yes oriented to time HENMT: COMMON NORMALS: normocephalic, atraumatic and hearing grossly normal bilaterally HEAD & SCALP: normocephalic and atraumatic Resp: COMMON NORMALS: normal respiratory effort, No retractions, No use of accessory muscles and clear to auscultation bilaterally AUSCULTATION: clear to auscultation bilaterally Cardio: COMMON NORMALS: regular rate, regular rhythm and No murmurs present (Cardio) RATE: regular rate RHYTHM: regular rhythm GI: COMMON NORMALS: Soft to palpation and No hepatosplenomegaly present AUSCULTATION: Yes normoactive bowel sounds PALPATION: Yes Soft to palpation, No Tenderness to palpation present (GI), No Guarding due to palpation present (GI) and Yes No hepatosplenomegaly present Extremity: COMMON NORMALS: normal to inspection, capillary refill normal, no clubbing, cyanosis or edema, no calf tenderness and no pedal edema Neuro: SENSORIUM/ORIENTATION: Yes oriented to person, Yes oriented to place and Yes oriented to time Skin: COMMON NORMALS: no rashes or lesions noted GENERAL SKIN EXAM: no rashes or lesions noted Course Vital Signs: Vital signs: Vital Signs Temperature 97.9 F 10/29/24 08:31 Pulse Rate 75 10/29/24 08:31 Respiratory Rate 18 10/29/24 08:31 Blood Pressure 150/93 10/29/24 08:31 Pulse Oximetry 96 10/29/24 08:31 Oxygen Delivery Me thod Room Air 10/29/24 08:31 Discharge Plan Discharge Condition: Stable Prescriptions: No Action tamsulosin 0.4 mg capsule 0.4 mg PO BID Qty: 180 3RF fluconazole 150 mg tablet 150 mg PO DAILY 3 Days Qty: 3 0RF nystatin 100,000 unit/gram cream 1 applic topical BID Qty: 30 2RF lisinopril 20 mg tablet 20 mg PO DAILY Qty: 90 3RF simvastatin 40 mg tablet 40 mg PO DAILY Qty: 90 3RF metoprolol tartrate 50 mg tablet 50 mg PO BID Qty: 60 6RF Xarelto 20 mg tablet See Rx Instructions .ROUTE .COMPLEX Qty: 90 0RF Dose Instruction: TAKE 1 TABLET BY MOUTH DAILY WITH EVENING MEAL Rx Instructions: TAKE 1 TABLET BY MOUTH DAILY WITH EVENING MEAL furosemide [Lasix] 20 mg tablet 20 mg PO DAILY Qty: 90 3RF Referrals: Bulmaro Godoy MD [Primary Care Provider, Family Practice] Print Language: Luxembourgish Coding Level of Care Code ED Deputy Sheriff [employer] for Joan Rose
--- NOTE | 2024-10-29 08:48 | XR_ITS ---
WS: [email or web address] Exam: XR hip RT 2-3V wo/w pel* [id number] Date/Time of Exam: 10/29/2024 9:16 AM Reason For Exam: pain No acute fracture. There is end-stage osteoarthritis with [id number] articulation. Subcortical cyst formation in the acetabulum and the femoral head. Some flattening of the femoral head. IMPRESSION1. No fracture noted. 2. End-stage osteoarthritis of the RIGHT hip with [id number].
--- NOTE | 2024-10-29 08:53 | CT_ITS ---
WS: [email or web address] Exam: CT abdomen pelvis w con* [id number] Date/Time of Exam: 10/29/2024 10:18 AM Reason For Exam: abd pain, right inguinal hernia. DLP: 388.[address] scans at [facility] use at least one of these dose optimization techniques: automated exposure control; mA and/or kV adjustment per patient size (includes targeted exams where dose is matched to clinical indication); or iterative reconstruction. Comparison 07/14/2022. Dependent changes and areas of plaque atelectasis in the bilateral lung bases. Stable appearing 1.1 cm low-density nodule seen in the anterior aspect of the RIGHT hepatic lobe. A second nonspecific subcentimeter low-attenuation nodule seen in the more inferior RIGHT hepatic lobe. Moderate-sized posterior pericardial effusion noted. Mild cardiac enlargement. Coronary artery calcifications. Small hiatal hernia. The stomach is otherwise unremarkable. The pancreas, spleen and gallbladder are unremarkable. Normal adrenal glands. Subcentimeter cyst at the lower pole of the RIGHT kidney. No renal obstruction. The IVC is patent. No lymphadenopathy. The celiac, SMA and PERLA are patent. The bilateral renal arteries are patent. The abdominal aorta is normal in caliber. Normal appendix visualized. No significant small bowel dilatation noted. Colonic diverticulosis but no sign of acute diverticulitis. No free air. There is significant new lobulated wall thickening of the posterior urinary bladder that may represent bladder neoplasm. Marked prostatomegaly. The prostate measures 7.1 cm in greatest transverse dimension and shows heterogeneous nodularity. No pelvic lymphadenopathy or ascites. No destructive bone lesions are seen. Moderate degenerative changes of the lumbar spine. Moderate spinal canal stenosis at L4-5. Severe degeneration of the RIGHT hip joint. Small fat filled bilateral inguinal hernias. CT/CT abdomen pelvis w con* [id number] IMPRESSION: 1. New lobulated posterior wall thickening of the urinary bladder that may repr esent bladder neoplasm. Marked prostatomegaly with heterogeneous nodularity of the prostate gland. This is nonspecific but might be seen with prostate maligna ncy. 2. Colonic diverticulosis. Small fat filled bilateral inguinal hernias. No francesca iated bowel identified. 3. Additional nonemergent findings as indicated above.
[2024-10-29 09:55] LABS: Hematocrit 46.9 % (37-53); Hemoglobin 15.10 g/dL (11.27-16.99); Mean Corpuscular HGB Conc 32.2 g/dL (30-55); Mean Corpuscular Hemoglobin 29.7 pg (27-33); Mean Corpuscular Volume 92.1 fl (82-101); Nucleated Red Blood Cells % 0 %; Platelet Count 164 10^3/cmm (157-399); Red Blood Count 5.09 10^6/uL (3.85-5.65); White Blood Count 9.10 10^3/uL (3.29-11.43)
[2024-10-29 10:13] LABS: Lactic Sepsis W/Reflex 1.0 mmol/L (0.5-2.2)
--- NOTE | 2024-10-29 10:13 | PM.HP ---
Providers/Chief Complaint Primary Care Provider: Bulmaro Godoy MD Chief Complaint: R leg pain History of Present Illness Arianna Sutherland is a 88 year old male Medications/Allergies Home Medications ?Medication ?Instructions ?Recorded ?Confirmed ?Last Taken ?Type fluconazole 150 mg tablet 150 mg PO DAILY 3 days #3 tabs 12/28/23 08/26/24 Unknown Rx nystatin 100,000 unit/gram topical 1 applic topical BID #30 grams 12/28/23 08/26/24 Unknown Rx cream lisinopril 20 mg tablet 20 mg PO DAILY #90 tabs 06/06/24 08/26/24 Unknown Rx simvastatin 40 mg tablet 40 mg PO DAILY #90 tabs 06/06/24 08/26/24 Unknown Rx metoprolol tartrate 50 mg tablet 50 mg PO BID #60 tabs 06/15/24 08/26/24 Unknown Rx furosemide 20 mg tablet (Lasix) 20 mg PO DAILY #90 tabs 07/11/24 08/26/24 Unknown Rx rivaroxaban 20 mg tablet (Xarelto) See Rx Instructions .Route 07/11/24 08/26/24 Unknown Rx .COMPLEX #90 tabs tamsulosin 0.4 mg capsule 0.4 mg PO BID #180 caps 08/10/24 08/10/24 Unknown Rx Allergies Allergy/AdvReac Type Severity Reaction Status Date / Time Latex, Natural Rubber Allergy ALGY-Bliste Verified 07/20/23 12:31 r morphine Allergy ADR-Confusi Verified 07/20/23 12:31 on PFSH Acute PFSH: Medical History (Updated 08/26/24 @ 10:51 by Bulmaro Godoy MD) BPH NOS w ur obs/LUTS Urolithiasis Prostatic hemorrhage Bladder stone Benign prostatic hyperplasia with urinary retention CAD (coronary artery disease) ASHD (arteriosclerotic heart disease) Diabetes Dyslipidemia Essential hypertension CKD (chronic kidney disease) Myocardial infarction Ischemic cardiomyopathy S/P extracorporeal shock wave therapy Abnormal prostate exam Elevated prostate specific antigen [PSA] Surgical History History of bladder stone Cystolitholapaxy May 2019 S/P cystoscopy S/P angioplasty with stent History of heart artery stent Family History Mother , 57 Cancer LEUKEMIA Father , 90 CAD (coronary artery disease) Congestive heart failure (CHF) Brother Myocardial infarction CAD (coronary artery disease) Leukemia Social History (Updated 08/26/24 @ 10:53 by Bulmaro Godoy MD) Smoking and tobacco/nicotine status: unknown if used tobacco/nicotine Alcohol intake: never Substance/Drug Use: never Marital status: Current occupational status: retired Current gender identity: Male Vitals/I&O/Wt Last Vital Signs Temp 97.9 F 10/29/24 08:31 Pulse 82 10/29/24 08:57 Resp 18 10/29/24 08:57 BP 150/93 10/29/24 08:57 Pulse Ox 93 10/29/24 08:57 O2 Del Method Room Air 10/29/24 08:57 Weight last 48 hrs Weight 140 lb Data 10/29/24 09:47 10/29/24 09:47 A&P PDMP PDMP Reviewed: Not Reviewed Coding Level of Care Code Acute Code for Joan Rose
[2024-10-29 10:15] LABS: Alanine Aminotransferase 9 U/L (0-41); Albumin Level 3.9 g/dL (3.5-5.2); Alkaline Phosphatase 77 U/L (40-130); Anion Gap 12.9 (5-19); Aspartate Amino Transferase 12 U/L (0-40); Blood Urea Nitrogen 18 mg/dL (8-23); Calcium 9.0 mg/dL (8.5-10.5); Carbon Dioxide 26 mmol/L (22-29); Chloride 105 mmol/L (98-107); Creatinine Clr Calc Pharmacy 51.1022; Globulin 2.7 g/dL (1.3-4.6); Glucose 96 mg/dL (65-115); Osmolality Calculated 292 mOsm/kg (285-295); Potassium 3.9 mmol/L (3.5-5.1); Sodium 140 mmol/L (136-145); Total Protein 6.6 g/dL (6.6-8.7)
[2024-10-29] MEDS: fentaNYL 50 mcg/mL INJ 2mL IVP (10:16)
[2024-10-29] MEDS: ondansetron 2 mg/ML SDV 2 mL 4 MG IVP (10:17)
[2024-10-29] MEDS: iohexol 350 mg/mL 500 mL Btl (per mL) IV (10:45)
--- NOTE | 2024-10-29 12:02 | XR_ITS ---
WS: [email or web address] Exam: XR chest 1V portable [id number] Date/Time of Exam: 10/29/2024 12:18 PM Reason For Exam: dyspnea/cough Comparison 04/10/2016. The lungs are fully expanded and clear. Chronic perihilar changes. Heart size is top limits normal. Probable hiatal hernia. No pleural effusion. Bony structures are intact. XR/XR chest 1V portable [id number] IMPRESSION: 1. No acute cardiopulmonary finding.
--- NOTE | 2024-10-29 12:02 | ECG_ITS ---
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 Measurements Intervals [place] Rate: 87 P: 131 NM: 173 QRS: 29 QRSD: 130 T: 122 QT: 345 QTc: 417 Interpretive Statements SUPRAVENTRICULAR RHYTHM MODERATE INTRAVENTRICULAR CONDUCTION DELAY [110+ ms QRS DURATION] ABNORMAL QRS-T ANGLE [QRS-T AXIS DIFFERENCE > 60] Compared to ECG 07/20/2023 13:02:40 Atrial fibrillation no longer present T-wave abnormality no longer present Possible ischemia no longer present Electronically Signed On 10-30-2024 08:21:54 CDT by George Malik M.D. [email or web address]
--- NOTE | 2024-10-29 13:48 | PM.CONSULT ---
Providers/Reason For Consult Consulting Physician/Specialty*: Dr. Stover general surgery Reason for Consult*: Right inguinal hernia Attending Physician: Luiz Butterfield MD Primary Care Provider: Bulmaro Godoy MD History of Present Illness History of Present Illness Arainna Sutherland is a 88 year old male with multiple medical problems including heart disease who presented with an incarcerated right inguinal hernia. No obstructive symptoms. Having bowel movements. Passing gas. No nausea. Able to reduce right inguinal hernia at bedside. Subsequent CT scan showed a fat-containing hernia bilaterally. No bowel present on either side. CT also showed a malignancy of the prostate. Abdomen is benign. Medications/Allergies Home Medications ?Medication ?Instructions ?Recorded ?Confirmed ?Last Taken ?Type fluconazole 150 mg tablet 150 mg PO DAILY 3 days #3 tabs 12/28/23 08/26/24 Unknown Rx nystatin 100,000 unit/gram topical 1 applic topical BID #30 grams 12/28/23 08/26/24 Unknown Rx cream lisinopril 20 mg tablet 20 mg PO DAILY #90 tabs 06/06/24 08/26/24 Unknown Rx simvastatin 40 mg tablet 40 mg PO DAILY #90 tabs 06/06/24 08/26/24 Unknown Rx metoprolol tartrate 50 mg tablet 50 mg PO BID #60 tabs 06/15/24 08/26/24 Unknown Rx furosemide 20 mg tablet (Lasix) 20 mg PO DAILY #90 tabs 07/11/24 08/26/24 Unknown Rx rivaroxaban 20 mg tablet (Xarelto) See Rx Instructions .Route 07/11/24 08/26/24 Unknown Rx .COMPLEX #90 tabs tamsulosin 0.4 mg capsule 0.4 mg PO BID #180 caps 08/10/24 08/10/24 Unknown Rx Allergies Allergy/AdvReac Type Severity Reaction Status Date / Time Latex, Natural Rubber Allergy ALGY-Bliste Verified 07/20/23 12:31 r morphine Allergy ADR-Confusi Verified 07/20/23 12:31 on PFSH Acute PFSH: Medical History (Updated 10/29/24 @ 14:20 by Garth Stover MD) BPH NOS w ur obs/LUTS Urolithiasis Prostatic hemorrhage Bladder stone Benign prostatic hyperplasia with urinary retention CAD (coronary artery disease) ASHD (arteriosclerotic heart disease) Diabetes Dyslipidemia Essential hypertension CKD (chronic kidney disease) Myocardial infarction Ischemic cardiomyopathy S/P extracorporeal shock wave therapy Abnormal prostate exam Elevated prostate specific antigen [PSA] Surgical History History of bladder stone Cystolitholapaxy May 2019 S/P cystoscopy S/P angioplasty with stent History of heart artery stent Family History Mother , 57 Cancer LEUKEMIA Father , 90 CAD (coronary artery disease) Congestive heart failure (CHF) Brother Myocardial infarction CAD (coronary artery disease) Leukemia Social History (Updated 08/26/24 @ 10:53 by Bulmaro Godoy MD) Smoking and tobacco/nicotine status: unknown if used tobacco/nicotine Alcohol intake: never Substance/Drug Use: never Marital status: Current occupational status: retired Current gender identity: Male Vitals/I&O/Wt Last Vital Signs Temp 97.9 F 10/29/24 08:31 Pulse 89 10/29/24 13:08 Resp 18 10/29/24 13:08 BP 137/76 10/29/24 13:08 Pulse Ox 90 10/29/24 13:08 O2 Del Method Room Air 10/29/24 13:08 Weight last 48 hrs Weight 140 lb Physical Exam Narrative: Chest: Unlabored breathing room air. No lymphadenopathy. Heart: Regular rate and rhythm. Abdomen: Soft, nontender, nondistended. No masses or lymphadenopathy. Bilateral inguinal hernias small. Right inguinal hernia reduced at bedside. Urinary Catheter Management: Gupta: Cath Placed During This Visit: yes Urinary Catheter Date of Insertion: 10/29/24 Urinary Catheter Time of Insertion: 11:58 Data 10/29/24 09:47 10/29/24 09:47 A&P Assessment and plan (1) Right inguinal hernia: Plan 88-year-old male who presented with an incarcerated right inguinal hernia. Reduced at bedside. Subsequent CT scan showed fat-containing hernias only. Recommend 24-hour observation. Okay for clear liquids. Patient unsure if he wants to proceed with hernia repair prior to discharge. Will discuss again on 10/30/2024. From a surgical perspective hernia can be repaired electively although there is a risk of subsequent incarceration. Will continue following. PDMP PDMP Reviewed: Not Reviewed Coding Level of Care Code 04908 Diagnoses Right inguinal hernia K40.90
--- NOTE | 2024-10-29 21:30 | PM.HP ---
Providers/Chief Complaint Admitting Physician: Luiz Butterfield MD Primary Care Provider: Bulmaro Gdooy MD Chief Complaint: R leg pain History of Present Illness Arianna Sutherland is a 88 year old male with a history of suspected prostate cancer with PSA of 15 in April [address] Nielson patient came in with incarcerated right inguinal hernia today reduced at bedside and subsequent CT showed just fat-containing hernia bilaterally. CT scan also shows enlarged irregular appearing prostate and a lobulated mass in the bladder posterior wall. After Gupta was placed he had gross hematuria Review of Systems Narrative: Patient denies chest pain or cough he does not have chest pressure with activity he does have some dyspnea on exertion. Patient cannot keep up with others due to a weak right leg and he has to walk with a cane GI no nausea vomiting diarrhea constipation he passed some gas downstairs after reduction of his hernia Patient reports some stool incontinence when passing urine forcing a void he passes a small stool often but not every time Medications/Allergies Home Medications ?Medication ?Instructions ?Recorded ?Confirmed ?Last Taken ?Type fluconazole 150 mg tablet 150 mg PO DAILY 3 days #3 tabs 12/28/23 08/26/24 Unknown Rx nystatin 100,000 unit/gram topical 1 applic topical BID #30 grams 12/28/23 08/26/24 Unknown Rx cream lisinopril 20 mg tablet 20 mg PO DAILY #90 tabs 06/06/24 08/26/24 Unknown Rx simvastatin 40 mg tablet 40 mg PO DAILY #90 tabs 06/06/24 08/26/24 Unknown Rx metoprolol tartrate 50 mg tablet 50 mg PO BID #60 tabs 06/15/24 08/26/24 Unknown Rx furosemide 20 mg tablet (Lasix) 20 mg PO DAILY #90 tabs 07/11/24 08/26/24 Unknown Rx rivaroxaban 20 mg tablet (Xarelto) See Rx Instructions .Route 07/11/24 08/26/24 Unknown Rx .COMPLEX #90 tabs tamsulosin 0.4 mg capsule 0.4 mg PO BID #180 caps 08/10/24 08/10/24 Unknown Rx Allergies Allergy/AdvReac Type Severity Reaction Status Date / Time Latex, Natural Rubber Allergy ALGY-Bliste Verified 07/20/23 12:31 r morphine Allergy ADR-Confusi Verified 07/20/23 12:31 on PFSH Acute PFSH: Medical History (Updated 10/29/24 @ 21:37 by Luiz Butterfield MD) Prostate cancer BPH NOS w ur obs/LUTS Urolithiasis Prostatic hemorrhage Bladder stone Benign prostatic hyperplasia with urinary retention CAD (coronary artery disease) ASHD (arteriosclerotic heart disease) Diabetes Dyslipidemia Essential hypertension CKD (chronic kidney disease) Myocardial infarction Ischemic cardiomyopathy S/P extracorporeal shock wave therapy Abnormal prostate exam Elevated prostate specific antigen [PSA] Surgical History History of bladder stone Cystolitholapaxy May 2019 S/P cystoscopy S/P angioplasty with stent History of heart artery stent Family History Mother , 57 Cancer LEUKEMIA Father , 90 CAD (coronary artery disease) Congestive heart failure (CHF) Brother Myocardial infarction CAD (coronary artery disease) Leukemia Social History (Updated 10/29/24 @ 21:36 by Luiz Butterfield MD) Smoking and tobacco/nicotine status: never used tobacco/nicotine Alcohol intake: never Substance/Drug Use: never Additional social history: He is accompanied by his daughters Jazmyn and Regina 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 Patient wants no CODE STATUS as confirmed on 10/29/2024 with Luiz Butterfield MD in the presence of his daughter as above Marital status: Current occupational status: retired Current gender identity: Male Vitals/I&O/Wt Last Vital Signs Temp 97.9 F 10/29/24 08:31 Pulse 76 10/29/24 19:56 Resp 21 H 10/29/24 19:56 BP 150/84 10/29/24 19:56 Pulse Ox 95 10/29/24 19:56 O2 Del Method Room Air 10/29/24 20:54 Weight last 48 hrs Weight 63.503 kg Weight 63.503 kg Physical Exam Narrative: General Well-developed thin male in no acute cardiopulmonary distress CV regular rate and rhythm Lungs clear to auscultation bilaterally Abdomen positive bowel tones soft minimally distended no rebound Calves no tenderness or asymmetry or edema Groin no obvious hernia supine on either side femoral pulses normal no tenderness Urinary Catheter Management: Gupta: Cath Placed During This Visit: yes Reason for Continuing Indwelling Catheter: Other Urinary Catheter Date of Insertion: 10/29/24 Urinary Catheter Time of Insertion: 11:58 Data 10/29/24 09:47 10/29/24 09:47 A&P Assessment and plan (1) Right inguinal hernia: I suspect this hernia will recur. Patient is reluctant to have surgery. Daughter is not I counseled him that surgery is a way to prevent recurrent hernia which would likely eventually require surgery and emergent condition (2) Hematuria: Suspected bladder cancer. Hold anticoagulants and antiplatelet agents for now Gupta to remain in place (3) Bladder tumor: Bladder mass highly suspicious for cancer (4) Prostate cancer: Prostate mass highly suspicious for cancer we will add PSA to lab PDMP PDMP Reviewed: Not Reviewed Attestations Medical Necessity Statement*: Patient farrukh in the hospital for management of hematuria. If not improving will need to send him to urology expected require greater than 2 midnights in hospital Coding Level of Care Code Acute Code for Chg Fwd Diagnoses Right inguinal hernia K40.90 Hematuria R31.9 Bladder tumor D49.4 Prostate cancer C61
[2024-10-30] VITALS (8 sets, daily range): BP systolic 138–168; BP diastolic 65–97; PULSE 56–96; RESP 16–18; TEMP 36.6–36.8; O2SAT 93–96
[2024-10-30 05:33] LABS: Hematocrit 45.8 % (37-53); Hemoglobin 14.90 g/dL (11.27-16.99); Mean Corpuscular HGB Conc 32.5 g/dL (30-55); Mean Corpuscular Hemoglobin 30.3 pg (27-33); Mean Corpuscular Volume 93.1 fl (82-101); Nucleated Red Blood Cells % 0 %; Platelet Count 151 10^3/cmm (157-399); Red Blood Count 4.92 10^6/uL (3.85-5.65); White Blood Count 8.05 10^3/uL (3.29-11.43)
[2024-10-30 05:51] LABS: Anion Gap 14.1 (5-19); Blood Urea Nitrogen 15 mg/dL (8-23); Calcium 8.7 mg/dL (8.5-10.5); Carbon Dioxide 27 mmol/L (22-29); Chloride 105 mmol/L (98-107); Creatinine Clr Calc Pharmacy 51.2479; Glucose 83 mg/dL (65-115); Osmolality Calculated 294 mOsm/kg (285-295); Potassium 4.1 mmol/L (3.5-5.1); Sodium 142 mmol/L (136-145)
[2024-10-30 06:15] LABS: Prostate Specific Antigen 21.660 ng/mL (0-4)
--- NOTE | 2024-10-30 07:16 | P.PN_ITS ---
Subjective 2 Subjective: right inguinal hernia reduced patient still complaining of right hip pain hematuria present Vitals/I&O/Wt Last Vital Signs Temp 98.3 F 10/30/24 04:00 Pulse 81 10/30/24 04:00 Resp 16 10/30/24 04:00 BP 162/74 10/30/24 04:00 Pulse Ox 93 10/30/24 04:00 O2 Del Method Room Air 10/30/24 04:00 10/29/24 10/30/24 10/30/24 22:59 06:59 14:59 Intake Total 16.667 / 16.667 913.333 / 913.333 Output Total 1000 / 1000 300 / 1300 Balance -983.333 / -983.333 -300 / -1283.333 913.333 / 913.333 Weight last 48 hrs Weight 141 lb Weight 140 lb Weight 140 lb Physical Exam 2 Narrative: rrr unlabored breathing ra abdomen soft, nt, nd right groin - hernia reduced Urinary Catheter Management: Gupta: Cath Placed During This Visit: yes Reason for Continuing Indwelling Catheter: Other Urinary Catheter Date of Insertion: 10/29/24 Urinary Catheter Time of Insertion: 11:58 Data 10/30/24 05:07 10/30/24 05:07 A&P Assessment and plan 1. Right inguinal hernia: Plan: 88 yo male whom surgery was consulted for a right inguinal hernia which was reduced in ED. CT scan did not reveal any bowel in hernia. Patient still complaining of hip pain. I explained that the pain is unlikely being caused by his hernia. He should be worked up for prostate cancer and obtain cardiac clearance before considering elective hernia repair. Patient agrees. PDMP PDMP Reviewed: Not Reviewed Attestations 2 Medical Necessity Statement*: NA Coding Level of Care Code 86632 Diagnoses Right inguinal hernia K40.90
[2024-10-30] MEDS: metoprolol tartrate 1 mg/1 mL SDV 5 mL 2.5 MG IVP (07:24)
--- NOTE | 2024-10-30 09:12 | PC.ADMIT ---
1925 [facility] Admission Note: The patient,Arianna Sutherland,88 y/o, was given written information regarding hospital policies, unit procedures and contact persons. Patient's smoking status: unknown if ever smoked. Vital Signs - 8 hr 10/30/24 04:00 10/30/24 07:39 10/30/24 09:08 Temperature 98.3 F 98.1 F Pulse Rate 81 93 Respiratory Rate 16 18 Blood Pressure 162/74 159/97 168/85 Pulse Oximetry 93 96 Oxygen Delivery Method Room Air Room Air
[2024-10-30] MEDS: metoprolol tartrate 1 mg/1 mL SDV 5 mL 5 MG IVP (09:47)
--- NOTE | 2024-10-30 09:53 | PC.NURSE ---
Metoprolol given this am around 0730. BP remains 168/85 with HR in 80s-90s. Pt still in afib. Dr. Butterfield advised. New orders received for Metoprolol 5mg ivp. Given at this time.
--- NOTE | 2024-10-30 10:27 | PC.CHAP ---
Pastoral Care Encounter/Spiritual Assessment Type of Contact [] Declined home furnishings sales representative visit [] Patient/Family/Request visit [] Outpatient visit [] Follow-up visit [] Physician referral [] Code/Alert [x] Routine visit [] Staff referral [] Actively dying [] Patient sleeping [x] Family support [] [] Out of room [] Palliative care [] [] Receiving care in room [] Pre-surgical visit [] Trauma [] Long length of stay [] ICU visit [] Other: Relational/Emotional Strength [x] Patient feels connected with others/family/visitors/staff [] Distress [] Loneliness/isolation [] Abandonment Spirituality of Patient [x] Person of Debbi [x] Attends Moravian of their Debbi [x] Believes in Prayer [x] Reads Bible or Holiness materials [] There are Spiritual issues to be addressed Linux Admin Interventions [x] Prayer [x] Active listening [x] Non-anxious presence [x] Spiritual/emotional support [] Crisis/trauma care [] Spiritual counseling [] Bereavement support [] Provided bereavement packet [] Provided Bible/devotional materials [] Provided toy/stuffed animal, coloring book to patient or family member [] Provided Communion [] Anointing/Altus [] Salvation [x] Completed spiritual assessment [] Other: Impact on Illness or Injury [] Angry [] Fearful [] Anxious [] Often cries [] Exhaustion [] Unable to work [] Unable to attend congregational [] Unable to walk/stand [] Unable to read [] Unable to drive [] Unable to eat/drink [] Unable to sleep [] Unable to be with family [] Patient intubated [] Other: Summary Time spent with patient 20 min Pastoral Care Encounter/Spiritual Assessment Type of Contact [] Declined home furnishings sales representative visit [] Patient/Family/Request visit [] Outpatient visit [] Follow-up visit [] Physician referral [] Code/Alert [] Routine visit [] Staff referral [] Actively dying [] Patient sleeping [] Family support [] [] Out of room [] Palliative care [] [] Receiving care in room [] Pre-surgical visit [] Trauma [] Long length of stay [] ICU visit [] Other: Relational/Emotional Strength [] Patient feels connected with others/family/visitors/staff [] Distress [] Loneliness/isolation [] Abandonment Spirituality of Patient [] Person of Debbi [] Attends Moravian of their Debbi [] Believes in Prayer [] Reads Bible or Holiness materials [] There are Spiritual issues to be addressed Linux Admin Interventions [] Prayer [] Active listening [] Non-anxious presence [] Spiritual/emotional support [] Crisis/trauma care [] Spiritual counseling [] Bereavement support [] Provided bereavement packet [] Provided Bible/devotional materials [] Provided toy/stuffed animal, coloring book to patient or family member [] Provided Communion [] Anointing/Altus [] Salvation [] Completed spiritual assessment [] Other: Impact on Illness or Injury [] Angry [] Fearful [] Anxious [] Often cries [] Exhaustion [] Unable to work [] Unable to attend congregational [] Unable to walk/stand [] Unable to read [] Unable to drive [] Unable to eat/drink [] Unable to sleep [] Unable to be with family [] Patient intubated [] Other: Summary Time spent with patient Pastoral Care Encounter/Spiritual Assessment Type of Contact [] Declined home furnishings sales representative visit [] Patient/Family/Request visit [] Outpatient visit [] Follow-up visit [] Physician referral [] Code/Alert [] Routine visit [] Staff referral [] Actively dying [] Patient sleeping [] Family support [] [] Out of room [] Palliative care [] [] Receiving care in room [] Pre-surgical visit [] Trauma [] Long length of stay [] ICU visit [] Other: Relational/Emotional Strength [] Patient feels connected with others/family/visitors/staff [] Distress [] Loneliness/isolation [] Abandonment Spirituality of Patient [] Person of Debbi [] Attends Moravian of their Debbi [] Believes in Prayer [] Reads Bible or Holiness materials [] There are Spiritual issues to be addressed Linux Admin Interventions [] Prayer [] Active listening [] Non-anxious presence [] Spiritual/emotional support [] Crisis/trauma care [] Spiritual counseling [] Bereavement support [] Provided bereavement packet [] Provided Bible/devotional materials [] Provided toy/stuffed animal, coloring book to patient or family member [] Provided Communion [] Anointing/Altus [] Salvation [] Completed spiritual assessment [] Other: Impact on Illness or Injury [] Angry [] Fearful [] Anxious [] Often cries [] Exhaustion [] Unable to work [] Unable to attend congregational [] Unable to walk/stand [] Unable to read [] Unable to drive [] Unable to eat/drink [] Unable to sleep [] Unable to be with family [] Patient intubated [] Other: Summary Time spent with patient
[2024-10-30] MEDS: HYDROcodone-acetaminophen 5-325 mg Tablet 1 TAB PO (12:33)
--- NOTE | 2024-10-30 13:16 | P.DS_ITS ---
Discharge Providers Date of Admission: 10/29/24 12:01 Date of Discharge: October 30, 2024 Attending Provider at Admission: Luiz Butterfield MD Attending Provider at Discharge: Luiz Butterfield MD Primary Care Provider: Bulmaro Godoy MD Diagnoses at Discharge Discharge Diagnosis 1. Right inguinal hernia: Details from hospital stay: Reduced and unlikely to be the cause of the patient's acute pain. I do think this will incarcerate again and will need to be addressed outpatient if patient wants to have this resolved 2. Hematuria: Details from hospital stay: Stop Xarelto until cleared by urology and PCP. Risk of bleeding outweighs the benefits of anticoagulation for A-fib currently. I suspect the bladder tumor or possible prostate cancer into the bladder is the cause of the bleeding 3. Bladder tumor: Details from hospital stay: As above 4. Prostate cancer: Details from hospital stay: As above with PSA now 20 up from 5 5. Degenerative joint disease of right hip: Details from hospital stay: I think the DJD of the hip is the most likely cause of his pain. He also has L1 to to space narrowing and L5-S1 to space narrowing. An MRI or bone scan to evaluate possible involvement with prostate cancer would be an option to be pursued outpatient You can take 650 mg of Tylenol or ibuprofen 400 g or both up to 4 times a day for hip pain. Once you are back on Xarelto if you still need to take pain meds avoid ibuprofen and just take Tylenol Reason for Visit Reason for Visit: R leg pain Brief History: Arianna Sutherland is a 88 year old male with a history of suspected prostate cancer with PSA of 15 in April [address] Nielson patient came in with incarcerated right inguinal hernia today reduced at bedside and subsequent CT showed just fat-containing hernia bilaterally. CT scan also shows enlarged irregular appearing prostate and a lobulated mass in the bladder posterior wall. After Gupta was placed he had gross hematuria The patient states he went to the ER after talking with his Dr. Godoy's office about severe right hip pain with walking. He states that that was not fully addressed but then he had hernia reduced and hematuria and was admitted Hospital Course Hospital Course Hernia was reduced and patient was observed in the hospital with thoughts of potential surgery but due to his complicated history with A-fib, anticoagulation , bladder and prostate tumors with hematuria, surgery was deemed not emergent or urgent. Patient also is a reluctant to proceed with surgeries. I spoke with KALEE Connolly at [facility] urology and patient can call [phone] to make an appointment to be seen within a week. The patient has had previous referral per her investigation in November 2023 and they made 3 calls to him with no return call and did not have an address to send a letter. I notified the family of this. He is accompanied by his daughters Jazmyn and Regina at this time and patient is ready for discharge Physical Exam Narrative: General Well-developed thin male in no acute cardiopulmonary distress CV regular rate and rhythm Lungs clear to auscultation bilaterally Abdomen positive bowel tones soft minimally distended no rebound Calves no tenderness or asymmetry or edema Groin no obvious hernia supine on either side femoral pulses normal no tenderness Gupta one third full with blood-tinged urine the urine in the tube is yellow and just barely blood-tinged but is showing less blood Urinary Catheter Management: Gupta: Cath Placed During This Visit: yes Reason for Continuing Indwelling Catheter: Other Urinary Catheter Date of Insertion: 10/29/24 Urinary Catheter Time of Insertion: 11:58 Discharge Data Studies Completed and Pending Completed Studies During Hospitalization Category Date Time Status CT abdomen pelvis w con* [id number] Stat Cat Scan 10/29/24 08:53 Completed XR chest 1V portable [id number] Stat Exams 10/29/24 12:02 Completed XR hip RT 2-3V wo/w pel* [id number] Stat Exams 10/29/24 08:48 Completed Radiology Impressions Abdomen/Pelvis CT 10/29/24 08:53 IMPRESSION: 1. New lobulated posterior wall thickening of the urinary bladder that may represent bladder neoplasm. Marked prostatomegaly with heterogeneous nodularity of the prostate gland. This is nonspecific but might be seen with prostate malignancy. 2. Colonic diverticulosis. Small fat filled bilateral inguinal hernias. No herniated bowel identified. 3. Additional nonemergent findings as indicated above. Chest X-Ray 10/29/24 12:02 IMPRESSION: 1. No acute cardiopulmonary finding. Laboratory Results WBC 8.05 10^3/uL (3.29-11.43) 10/30/24 05:07 RBC 4.92 10^6/uL (3.85-5.65) 10/30/24 05:07 Hgb 14.90 g/dL (11.27-16.99) 10/30/24 05:07 Hct 45.8 % (37-53) 10/30/24 05:07 MCV 93.1 fl (82-101) 10/30/24 05:07 MCH 30.3 pg (27-33) 10/30/24 05:07 MCHC 32.5 g/dL (30-55) 10/30/24 05:07 RDW 12.3 % (12.1-15.1) 10/30/24 05:07 Plt Count 151 10^3/cmm (157-399) L 10/30/24 05:07 MPV 11.8 fL (7.4-10.4) H 10/30/24 05:07 Neut % (Auto) 69.0 % 10/30/24 05:07 Lymph % (Auto) 14.4 % 10/30/24 05:07 [place] % (Auto) 13.2 % 10/30/24 05:07 Eos % (Auto) 2.7 % 10/30/24 05:07 Baso % (Auto) 0.5 % 10/30/24 05:07 Neut # (Auto) 5.55 10^3/uL (1.8-7.7) 10/30/24 05:07 Lymph # (Auto) 1.2 10^3/uL (0.8-4.8) 10/30/24 05:07 [place] # (Auto) 1.1 10^3/uL (0.2-0.9) H 10/30/24 05:07 Eos # (Auto) 0.2 10^3/uL (0.0-0.8) 10/30/24 05:07 Baso # (Auto) 0.0 10^3/uL (0.0-0.1) 10/30/24 05:07 Nucleated RBC % (auto) 0 % 10/30/24 05:07 Nucleated RBCs # 0.0 /100WBC 10/30/24 05:07 Sodium 142 mmol/L (136-145) 10/30/24 05:07 Potassium 4.1 mmol/L (3.5-5.1) 10/30/24 05:07 Chloride 105 mmol/L (98-107) 10/30/24 05:07 Carbon Dioxide 27 mmol/L (22-29) 10/30/24 05:07 Anion Gap 14.1 (5-19) 10/30/24 05:07 BUN 15 mg/dL (8-23) 10/30/24 05:07 Creatinine 0.9 mg/dL (0.7-1.2) 10/30/24 05:07 GFR Calculation Not Reportable 10/30/24 05:07 Glucose 83 mg/dL (65-115) 10/30/24 05:07 Calculated Osmolality 294 mOsm/kg (285-295) 10/30/24 05:07 Lactic Acid 1.0 mmol/L (0.5-2.2) 10/29/24 09:47 Calcium 8.7 mg/dL (8.5-10.5) 10/30/24 05:07 Total Bilirubin 0.8 mg/dL (0.15-1.2) 10/29/24 09:47 AST 12 U/L (0-40) 10/29/24 09:47 ALT 9 U/L (0-41) 10/29/24 09:47 Alkaline Phosphatase 77 U/L (40-130) 10/29/24 09:47 Total Protein 6.6 g/dL (6.6-8.7) 10/29/24 09:47 Albumin 3.9 g/dL (3.5-5.2) 10/29/24 09:47 Globulin 2.7 g/dL (1.3-4.6) 10/29/24 09:47 Prostate Specific Ag 21.660 ng/mL (0-4) H 10/30/24 05:07 Vitals Last Vital Signs Temp 97.9 F 10/30/24 11:33 Pulse 96 10/30/24 12:49 Resp 17 10/30/24 11:33 BP 165/81 10/30/24 11:33 Pulse Ox 95 10/30/24 11:33 O2 Del Method Room Air 10/30/24 11:33 Discharge Plan Discharge Patient Disposition: Home Condition: Stable Prescriptions: New cephalexin 500 mg capsule 500 mg PO TID 7 Days Qty: 21 0RF Continued tamsulosin 0.4 mg capsule 0.4 mg PO BID Qty: 180 3RF lisinopril 20 mg tablet 20 mg PO DAILY Qty: 90 3RF simvastatin 40 mg tablet 40 mg PO DAILY Qty: 90 3RF metoprolol tartrate 50 mg tablet 50 mg PO BID Qty: 60 6RF furosemide [Lasix] 20 mg tablet 20 mg PO DAILY Qty: 90 3RF Held Xarelto 20 mg tablet See Rx Instructions .ROUTE .COMPLEX Qty: 90 0RF Hold Instructions: Hold until bleeding and bladder has stopped and you have direction from your urologist and primary care physician Dr. Godoy Dose Instruction: TAKE 1 TABLET BY MOUTH DAILY WITH EVENING MEAL Rx Instructions: TAKE 1 TABLET BY MOUTH DAILY WITH EVENING MEAL Care Information Associate OK for DC: Surgery Discharge Order = DC NOW: Discharge Order (Routine); Ordered 10/30/24 Ordered By: Luiz Butterfield Referrals: Garth Stover MD [Physician, General Surgery] - 2 weeks Problems: Right inguinal hernia Elliot Kuo [Referring, Urology] - 4-7 days Referral Note: Hematuria with large posterior bladder wall tumor and prostate cancer with PSA of [address] at time of discharge secondary to urinary retention Problems: Hematuria; Bladder tumor; Prostate cancer Bulmaro Godoy MD [Primary Care Provider, Family Practice] Discharge Diet: Cardiac Discharge Activity: Increase activity as tolerated Patient Instructions: Opioid Safety, Patient Portal & Rosmery Instructions Activity Restrictions/Additional Instructions: Leave Gupta in until seen by urologist or Dr. Godoy Return if hematuria worsens or Gupta catheter clots off You need to have a cystoscopy and urology evaluation to see about what looks like a bladder cancer and prostate cancer Hold Xarelto until bleeding stops and you are cleared to return on that medication by Dr. Godoy or your urologist I wrote you a prescription for Keflex 1 tablet 3 times a day for 7 days in case you get signs of urinary tract infection with fever or pain in your bladder Call [phone] to make appointment at [place] to see KALEE Connolly or Dr. Elliot Kuo MD urology Discharge Attestations Time Spent in Discharge Care*: greater than 30 min Quality Metrics Clinical Quality Measures [ No reported AMI, CVA or VTE this stay] Coding Level of Care Code Acute Code for Chg Fwd Diagnoses Right inguinal hernia K40.90 Hematuria R31.9 Bladder tumor D49.4 Prostate cancer C61 Degenerative joint disease of right hip M16.11 Time Spent (min) 65
[2024-10-30 13:41] LABS: Glucose Urine UA Negative (Normal); Nitrate Urine Positive (Negative); Specific Gravity, Urine 1.023 (1.005-1.030)
[2024-10-30 14:00] LABS: UA Slide Review UA Slide Review Perf
--- NOTE | 2024-10-30 15:02 | PC.NURSE ---
Discharge instructions provided to pt and his . No questions or concerns voiced at this time. Pt to private vehicle via wheelchair with all belongings.
== END 2024-10-30 15:06 | disposition home or self-care (01) | DRG 395 ==
LOC: ER 08:48 → ER IP 12:06 → MEDSURG 19:57 → ER IP 10-30 11:17
PROVIDERS: Admitting Provider Internal Medicine; Emergency Provider Family Medicine; PCP Family Medicine; Visit Provider Internal Medicine
DX: K40.30 Unilateral inguinal hernia, with obstruction, without gangrene, not specified as recurrent (principal); R31.0 Gross hematuria; N32.9 Bladder disorder, unspecified; C61 Malignant neoplasm of prostate; M16.11 Unilateral primary osteoarthritis, right hip; I48.91 Unspecified atrial fibrillation; N40.1 Benign prostatic hyperplasia with lower urinary tract symptoms; R33.8 Other retention of urine; I25.10 Atherosclerotic heart disease of native coronary artery without angina pectoris; E11.9 Type 2 diabetes mellitus without complications; E78.5 Hyperlipidemia, unspecified; I12.9 Hypertensive chronic kidney disease with stage 1 through stage 4 chronic kidney disease, or unspecified chronic kidney disease; E11.22 Type 2 diabetes mellitus with diabetic chronic kidney disease; N18.9 Chronic kidney disease, unspecified; I25.5 Ischemic cardiomyopathy; Z66 Do not resuscitate; I25.2 Old myocardial infarction; Z79.01 Long term (current) use of anticoagulants; Z95.5 Presence of coronary angioplasty implant and graft
CPT/HCPCS: 36415; 51702; 71045; 73502; 74177; 80048; 80053; 81001; 83605; 84153; 85025; 87086; 93005; 97116; 97161; J1885; J2405; J3010; J3490; J7030; J7120; J9999

== ENCOUNTER → 2024-11-01 12:44 | Outpatient (BNVA) | payer MEDICARE, MEDICAID, SELFPAY | PROVIDERS: PCP Family Medicine; Visit Provider Family Medicine | DX: N39.0 Urinary tract infection, site not specified (principal) | CPT/HCPCS: 87086; 87106 ==

== ENCOUNTER → 2025-02-05 10:58 | Outpatient (BNVA) | payer MEDICARE, MEDICAID, SELFPAY | PROVIDERS: PCP Family Medicine; Visit Provider Family Medicine | DX: Z51.81 Encounter for therapeutic drug level monitoring (principal); R25.2 Cramp and spasm | CPT/HCPCS: 80053; 83735; 85025 ==

== ENCOUNTER → 2025-02-20 08:01 | Outpatient (BNVA) | payer MEDICARE, MEDICAID, SELFPAY | PROVIDERS: PCP Family Medicine; Referring Provider Internal Medicine; Visit Provider Internal Medicine Cardiovascular Disease | DX: Z01.810 Encounter for preprocedural cardiovascular examination (principal); I13.0 Hypertensive heart and chronic kidney disease with heart failure and stage 1 through stage 4 chronic kidney disease, or unspecified chronic kidney disease; I50.22 Chronic systolic (congestive) heart failure; N18.9 Chronic kidney disease, unspecified; R07.9 Chest pain, unspecified; I48.0 Paroxysmal atrial fibrillation; E78.5 Hyperlipidemia, unspecified; I25.10 Atherosclerotic heart disease of native coronary artery without angina pectoris; I25.2 Old myocardial infarction; Z79.01 Long term (current) use of anticoagulants | CPT/HCPCS: 93005; 99214 ==

== ENCOUNTER 2025-02-20 09:11 | Outpatient (CLI) | payer MEDICARE, MEDICAID, SELFPAY ==
--- NOTE | 2025-02-20 09:23 | XR_ITS ---
WS: [id number] Exam: XR chest 2V* [id number] Date/Time of Exam: 02/20/2025 9:35 AM Reason For Exam: pleural effusion Comparison 10/29/2024. The lungs are clear and fully expanded. Heart size top limits normal. The mediastinum is normal in contour. No pleural effusion. Bony structures are intact. XR/XR chest 2V* [id number] IMPRESSION: 1. No acute cardiopulmonary finding.
== END 2025-02-20 09:12 | disposition home or self-care (01) ==
LOC: RAD 09:14
PROVIDERS: PCP Family Medicine; Visit Provider Internal Medicine Cardiovascular Disease
DX: J90 Pleural effusion, not elsewhere classified (principal)
CPT/HCPCS: 71046

== ENCOUNTER 2025-02-27 11:04 | Outpatient (CLI) | payer MEDICARE, MEDICAID, SELFPAY ==
--- NOTE | 2025-02-27 11:15 | USCV_ITS ---
Arianna Sutherland Age: 89 Gender: M : 1935 Exam Date: 02/27/2025 12:00 Ordering Phys: Joshua Vann MD ([email or web address]) Technologist: Exam Location: [facility] [place] Indication: cp sob BP: 130 / 70 HR: 86 Rhythm: Sinus Technical Quality: MEASUREMENTS (Male / Female) Normal Values 2D ECHO LV Diastolic Diameter PLAX 4.3 cm 4.2 - 5.9 / 3.9 - 5.3 cm IVS Diastolic Thickness 1.2 cm 0.6 - 1.0 / 0.6 - 0.9 cm IVS Systolic Thickness 1.6 cm LVPW Diastolic Thickness 1.4 cm 0.6 - 1.0 / 0.6 - 0.9 cm LVPW Systolic Thickness 1.7 cm LVOT Diameter 2.0 cm LV Ejection Fraction 2D Teich 68.4 % LV Ejection Fraction MOD 4C 59.8 % LA Diameter 4.5 cm RA Systolic Volume 4C AL 55.2 ml RA Systolic Volume 4C MOD 52.7 ml Aorta at Sinotubular Diameter 2.4 cm M-MODE LA Ao Ratio MM 1.4 AV Cusp Separation MM 1.8 cm DOPPLER AV Peak Velocity 125.3 cm/s LVOT Peak Velocity 88.0 cm/s AV Area Cont Eq vti 2.3 cm squared AV Area Cont Eq pk 2.2 cm squared MV Peak Velocity 104.0 cm/s MV Area PHT 5.0 cm squared Mitral E to A Ratio 2.6 TV Peak Velocity 239.5 cm/s TR Peak Velocity 296.0 cm/s TR Peak Gradient 35.0 mmHg TV Peak E Velocity 84.0 cm/s PV Peak Velocity 117.0 cm/s FINDINGS Left Ventricle Normal left ventricular size. There is hypokinesis of the mid and basal inferior and inferolateral wall segments with globally normal LV systolic function with ejection fraction of 55%. Mild left ventricular hypertrophy. Indeterminate left ventricular systolic function due to irregular heart rhythm. Right Ventricle Normal right ventricular size and systolic function. Right Atrium Normal right atrial size. Left Atrium Mildly increased left atrial size. IA Septum Normal appearance of the interatrial septum. Mitral Valve Normal mitral valve structure. Mild regurgitation. Aortic Valve Normal aortic valve structure. No aortic valve stenosis or regurgitation. Tricuspid Valve Normal tricuspid valve structure.Trace regurgitation. Normal pulmonary pressure. Pulmonic Valve Normal pulmonic valve structure. No pulmonic valve stenosis or regurgitation. Pericardium There is a small circumferential pericardial effusion without echo evidence of tampanode. Aorta Normal diameter of the aortic root and ascending thoracic aorta. IVC Inferior vena cava not visualized. CONCLUSIONS Normal left ventricular size, systolic function and ejection fraction of 55%. Mild left ventricular hypertrophy Normal right ventricular size and systolic function. Mild mitral valve regurgitation. There is a small circumferential pericardial effusion without echo evidence of tampanode. Joshua Vann MD, FACC (Electronically Signed) Final Date: 09 March 2025 12:36 S
== END 2025-02-27 11:05 | disposition home or self-care (01) ==
LOC: RAD 11:05
PROVIDERS: PCP Family Medicine; Visit Provider Internal Medicine Cardiovascular Disease
DX: R06.02 Shortness of breath (principal); I51.89 Other ill-defined heart diseases; I51.7 Cardiomegaly; R93.1 Abnormal findings on diagnostic imaging of heart and coronary circulation; I34.0 Nonrheumatic mitral (valve) insufficiency; I31.39 Other pericardial effusion (noninflammatory)
CPT/HCPCS: 93306

== ENCOUNTER 2025-02-28 07:52 | Outpatient (CLI) | payer MEDICARE, MEDICAID, SELFPAY ==
--- NOTE | 2025-02-28 | ECG_ITS ---
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 Interpretive Statements Lung unchanged pre/post procedure; Intraprocedure shortess of breath;; Symptoms resoled by discharge PROCEDURE: At the baseline, the EKG revealed atrial fibrillation with a controlled ventricular response rate. Nonspecific IVCD.. The baseline heart was 63 bpm with a blood pressue of 127/72 mm of Hg Lexiscan was infused over a period of 20 seconds. A total of 0.4 milligrams of Lexiscan was infused. The stress phase was continued for a total of 5 minutes. Heart rate at the end of the stress phase was 67 bpm with a blood pressure 117/59 mm of Hg. The EKG at the peak infusion revealed no significant changes. Sestamibi was injected 20 seconds after the Lexiscan infusion. Heart rate at the end of the recovery phase was 72 bpm with a blood pressure of 112/59 mm of Hg. CONCLUSION: 1. No significant EKG changes with the LexiScan infusion 2. No LexiScan induced chest pain or cardiac arrhythmia 3. Normal blood pressure and heart rate response 4. Sestamibi/sestamibi perfusion scan pending; see separate report. Electronically Signed On 03-01-2025 20:14:10 INDUSTRIAL EDITOR by Sophia Rosado M.D. [email or web address]
--- NOTE | 2025-02-28 08:21 | NMCV_ITS ---
NM nivia perf SPECT r/s* [id number] Arianna Sutherland Age: 89 Gender: M : 1935 Exam Date: 02/28/2025 09:18 Ordering Phys: Joshua Vann MD ([email or web address]) Technologist: KEILY Segura Exam Location: [facility] Indications: CP STRESS TEST Please see separate stress test report in [facility] for full findings IMAGE PROTOCOL Rest/Stress 1 Lexiscan Day Radiopharmaceutical Dose (mCi) Administration Site Administered by Rest: Tc-99m 10.6 IV KEILY Blum Sestamibi Stress:Tc-99m 32.5 IV KEILY Segura Sestamipaddy Rest: 28-Feb-2025 60 Discovery 630 Stress: 28-Feb-2025 30 Discovery 630 0.4mg Lexiscan. Images obtained in supine and prone position. SPECT RESULTS Technical Quality: Good Raw Data Analysis: Normal Image Corrections: No attenuation or motion correction applied Summed Stress Score: 5 Summed Rest Score: 13 Summed Difference Score: 1 PERFUSION FINDINGS Moderate area of moderately decreased tracer uptake involving the basal inferior and basal inferolateral segments with a subtle area of reversibility in the basal inferior region, in the supine imaging. However with the prone imaging, no significant reversible defects were noted FUNCTIONAL RESULTS (calculated via Gated SPECT) Stress Image LV EF (%): 61 Stress EDV (mL):102 TID: 0.95 Stress ESV (mL):40 FUNCTIONAL FINDINGS: Segmental wall motion analysis revealing no gross wall motion abnormalities IMPRESSIONS 1. Myocardial perfusion imaging revealing moderate area of moderately decreased tracer uptake involving the basal inferior and basal inferolateral segments with a subtle area of reversibility in the inferior wall region suggesting myocardial scarring with a subtle area of ischemia. However because of the inconsistency with the prone imaging, most likely this is artifactual. 2. Normal LV ejection fraction 61% 3. LV wall motion analysis revealing no gross wall motion abnormalities. 4. Normal LV volume Possibly no significant coronary ischemia, based on the above finding Dr Sophia Rosado MD FACC (Electronically Signed) Final Date: 28 February 2025 12:30 S
== END 2025-02-28 07:53 | disposition home or self-care (01) ==
LOC: CDL 07:56
PROVIDERS: PCP Family Medicine; Visit Provider Internal Medicine Cardiovascular Disease
DX: I50.9 Heart failure, unspecified (principal); R93.1 Abnormal findings on diagnostic imaging of heart and coronary circulation
CPT/HCPCS: 36415; 78452; 96374; A9500; J2785

== ENCOUNTER 2025-04-06 08:21 | Emergency (ER) | payer MEDICARE, MEDICAID, SELFPAY ==
[2025-04-06 08:23] VITALS: BP 178/117; PULSE 100; RESP 18; TEMP 36.6; O2SAT 96; BMI 22.7
--- NOTE | 2025-04-06 08:30 | ED_ITS ---
HPI - Male Genitourinary General: Chief complaint: Urogenital-Male Stated complaint: Cath has blood and hurting Time Seen by Provider: 04/06/25 08:25 History of Present Illness: 89-year-old man with a history of bladde r cancer with chronic indwelling Gupta that is replaced by urology in [place] once a month, Coronary artery disease, diabetes, hyperlipidemia, hypertension and chronic kidney disease who presents emergency room with a blocked Gupta catheter. He says it was replaced by urology yesterday. Has not been draining all night. He has some suprapubic tenderness. No fever. There is some blood in his Gupta bag. He says it does require a special sized Gupta catheter. Only replaced by urology. No fever. No nausea or vomiting. No altered mental status. No chest pain. Related Data Home Medications ?Medication ?Instructions ?Recorded ?Confirmed nystatin 100,000 unit/gram topical 1 applic topical BI D 02/20/25 04/04/25 cream Previous Rx's ?Medication ?Instructions ?Recorded simvastatin 40 mg tablet 40 mg PO DAILY #90 tabs 05/26 06/19 tamsulosin 0.4 mg capsule 0.4 mg PO BID #180 caps 07/24 12/17 lisinopril 10 mg tablet 10 mg PO DAILY #90 tabs 11/24 12/17 rivaroxaban 20 mg tablet (Xarelto) See Rx Instructions .Route 02/19/25 .COMPLEX #90 tabs metoprolol tartrate 50 mg tablet 50 mg PO BID #60 tabs 02/26/25 furosemide 20 mg tablet (Lasix) 40 mg (2 x 20 mg) PO D AILY #60 tabs 03/29/25 amoxicillin 875 mg-potassium 1 tab PO BID #14 tabs 03/19 clavulanate 125 mg tablet oseltamivir 75 mg capsule (Tamiflu) 75 mg PO DAILY 10 days #10 caps 04/04/25 Allergies Allergy/AdvReac Type Severity Reaction Status Date / Time Latex, Natural Rubber Allergy ALGY-Bliste Verified 02/20/25 08:15 r morphine Allergy ADR-Confusi Verified 02/20/25 08:15 on Review of Systems Narrative: Constitutional symptoms: Negative except as documented in HPI. Skin symptoms: Negative except as documented in HPI. Eye symptoms: Negative except as documented in HPI. ENMT symptoms: Negative except as documented in HPI. Respiratory symptoms: Negative except as documented in HPI. Cardiovascular symptoms: Negative except as documented in HPI. Gastrointestinal symptoms: Negative except as documented in HPI. Genitourinary symptoms: Negative except as documented in HPI. Musculoskeletal symptoms: Negative except as documented in HPI. Neurologic symptoms: Negative except as documented in HPI. Psychiatric symptoms: Negative except as documented in HPI. Endocrine symptoms: Negative except as documented in HPI. [facility] ED PFSH: Medical History (Updated 04/06/25 @ 09:11 by Cici Lyles MD) Prostate cancer BPH NOS w ur obs/LUTS Urolithiasis Prostatic hemorrhage Bladder stone Benign prostatic hyperplasia with urinary retention CAD (coronary artery disease) ASHD (arteriosclerotic heart disease) Diabetes Dyslipidemia Essential hypertension CKD (chronic kidney disease) Myocardial infarction Ischemic cardiomyopathy S/P extracorporeal shock wave therapy Abnormal prostate exam Elevated prostate specific antigen [PSA] Surgical History History of bladder stone Cystolitholapaxy May 2019 S/P cystoscopy S/P angioplasty with stent History of heart artery stent Family History Mother , 57 Cancer LEUKEMIA Father , 90 CAD (coronary artery disease) Congestive heart failure (CHF) Brother Myocardial infarction CAD (coronary artery disease) Leukemia Social History Smoking and tobacco/nicotine status: never used tobacco/nicotine Alcohol intake: never Substance/Drug Use: never Additional social history: He is accompanied by his daughters Jazmyn and Regina 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 Patient wants no CODE STATUS as confirmed on 10/29/2024 with Luiz Butterfield MD in the presence of his daughter as above Marital status: Current occupational status: retired Current gender identity: Male Physical Exam Narrative: EXAM NARRATIVE: General: Alert, no acute distress. Skin: Warm, dry. Head: Normocephalic, atraumatic. Neck: Supple, trachea midline. Eye: Extraocular movements are intact. Ears, nose, mouth and throat: mucosa moist. Cardiovascular: Regular, Normal peripheral perfusion. Respiratory: Lungs are clear to auscultation, respirations are non-labored, breath sounds are equal, Symmetrical chest wall expansion. Gastrointestinal: Soft, some suprapubic tenderness, Non distended Musculoskeletal: Normal ROM, no deformity. Neurological: Alert and oriented, No focal neurological deficit observed. Psychiatric: Cooperative, appropriate mood & affect. Course Vital Signs: Vital signs: Vital Signs Temperature 97.9 F 04/06/25 08:23 Pulse Rate 86 04/06/25 08:48 Respiratory Rate 18 04/06/25 08:23 Blood Pressure 147/86 04/06/25 08:48 Pulse Oximetry 94 04/06/25 08:48 Oxygen Delivery Me thod Room Air 04/06/25 08:48 MDM - Male Medical Decision Making Medical decision making Patient's reason for coming to the emergency room: Social determinants: I reviewed the patient's medical record. 89-year-old man with a history of bladder cancer with chronic indwelling Gupta that is replaced by urology in [place] once a month, Coronary artery disease, diabetes, hyperlipidemia, hypertension and chronic kidney disease I reviewed the patient's current home meds Patient is anticoagulated on Xarelto Alternate historians: None Differential diagnosis: including but not limited to and based on the above HPI, review of systems and physical exam: Most likely mechanical obstruction. It appears maybe he had pulled the catheter out a little bit because whenever the bulb was deflated he started draining. It was advanced a little bit and reinflated and now he is draining well. Also nursing flushed. Orders placed to evaluate differential diagnosis based on the above differential, HPI and physical exam Lab Review: Laboratory results were reviewed and interpreted by myself the emergency room physician. No lab work indicated today. Assessment of risk: Level of risk: Moderate to high risk patient with multiple comorbidities. Hospitalization considerations: No indication for hospitalization Reexamination: Patient has drained over liter of urine. He feels much better. Patient remained stable. No increased work of breathing. No altered mental status. No focal motor deficits. Assessment and plan: Gupta catheter malfunction - Discharged home - Discussed plan with patient. Answered any questions. - Evaluation and treatment of this problem were appropriate in the emergency setting. All radiology interpretation(s) finalized by discharge Discharge Plan Discharge Patient Disposition: Home Clinical Impression: Complication of Gupta catheter Condition: Stable Prescriptions: No Action tamsulosin 0.4 mg capsule 0.4 mg PO BID Qty: 180 3RF oseltamivir [Tamiflu] 75 mg capsule 75 mg PO DAILY 10 Days Qty: 10 0RF amoxicillin-pot clavulanate 875-125 mg tablet 1 tab PO BID Qty: 14 0RF lisinopril 10 mg tablet 10 mg PO DAILY Qty: 90 3RF Xarelto 20 mg tablet See Rx Instructions .ROUTE .COMPLEX Qty: 90 2RF Dose Instruction: TAKE 1 TABLET BY MOUTH DAILY WITH EVENING MEAL Rx Instructions: TAKE 1 TABLET BY MOUTH DAILY WITH EVENING MEAL nystatin 100,000 unit/gram cream 1 applic topical BID simvastatin 40 mg tablet 40 mg PO DAILY Qty: 90 3RF metoprolol tartrate 50 mg tablet 50 mg PO BID Qty: 60 6RF furosemide [Lasix] 20 mg tablet 40 mg PO DAILY Qty: 60 6RF Discharge Orders: Discharge ED (Routine); Ordered 04/06/25 Ordered By: Cici Lyles Referrals: Bulmaro Godoy MD [Primary Care Provider, Family Practice] Discharge Diet: Usual diet Discharge Activity: Increase activity as tolerated Patient Instructions: Gupta Catheter Placement and Care (ED), Opioid Safety, Pain Management, Patient Portal & [place] Instructions Activity Restrictions/Additional Instructions: Follow-up with Dr. Kuo with urology as instructed. Thank you for choosing [facility] for your healthcare needs today. You have been screened and evaluated and felt safe for discharge. Health conditions do change or evolve sometimes and as such it is important that you follow up with your Primary Doctor to be re checked, 3-5 days is a general good time frame for follow up. You are always welcome to return to the ED for re assessment if your symptoms are worsening or you have new concerns. (Please note that included in your discharge packet is information concerning opioid safety and pain management. This information is given to all patients who are discharged from the ER regardless of their discharge diagnosis or the medicines they usually take or are prescribed.) Print Language: Zambian Coding Level of Care Code ED Datastage Developer for Joan Rose
[2025-04-06 08:48] VITALS: BP 147/86; PULSE 86; O2SAT 94
--- NOTE | 2025-04-06 09:14 | PC.NURSE ---
Pt vides balloon deflated and advanced. pt had instant urine flow and relief in pain. Irrigated with 500ml total to light pink urine flow. pt tolerated well.
[2025-04-06 09:16] VITALS: BP 124/72; PULSE 88; O2SAT 93
== END 2025-04-06 09:19 | disposition home or self-care (01) ==
PROVIDERS: Emergency Provider Emergency Medicine; PCP Family Medicine
DX: T83.9XXA Unspecified complication of genitourinary prosthetic device, implant and graft, initial encounter (principal); X58.XXXA Exposure to other specified factors, initial encounter; I25.10 Atherosclerotic heart disease of native coronary artery without angina pectoris; E78.5 Hyperlipidemia, unspecified; E11.22 Type 2 diabetes mellitus with diabetic chronic kidney disease; I12.9 Hypertensive chronic kidney disease with stage 1 through stage 4 chronic kidney disease, or unspecified chronic kidney disease; N18.9 Chronic kidney disease, unspecified
CPT/HCPCS: 99282